=== PATIENT | female | born 1990 | race Caucasian/White ===

== ENCOUNTER 2016-09-17 02:11 | Emergency (ER) | payer OTHER ==
[~2016-09-17 02:11] MED LIST: ONDA1TAB16 PO; TRAM50 PO
[2016-09-17 02:15] VITALS: BP 125/75; PULSE 112; RESP 18; TEMP 98.2; O2SAT 96
[2016-09-17] MEDS ORDERED: SODIUM CHLOR 0.9% 1000 ML INJ 1,000 ML IV SCH (02:39)
[2016-09-17] MEDS ORDERED: ONDANSETRON HCL 4 MG/2 ML VIAL IVP ONE (02:45)
[2016-09-17] MEDS ORDERED: MORPHINE SULFATE 4 MG/ML INJ IV ONE (02:45)
[2016-09-17 02:47] VITALS: RESP 18; O2SAT 100
[2016-09-17] MEDS: SODIUM CHLORIDE 0.9% FLUSH 5 ML FLUSH IVF PRN ×2 (02:47→04:22)
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
[2016-09-17] MEDS ORDERED: IOHEXOL 350 MG/ML 10 ML VIAL (for RAD DIAG) IV ONE (02:58)
[2016-09-17 03:03] LABS: AUTOMATED NEUTROPHIL # 12.5 TH/MM3 (1.8-7.7); BASOPHIL # 0.1 TH/MM3 (0-0.2); BASOPHIL % 0.3 % (0.0-2.0); HEMATOCRIT 42.7 % (35.0-46.0); HEMO FLAGS DIFF FINAL; LYMPH % 13.1 % (9.0-44.0); MEAN CELL VOLUME 90.4 FL (80.0-100.0); MEAN CORPUSCULAR HEMOGLOBIN 31.1 PG (27.0-34.0); MEAN CORPUSCULAR HGB CONC 34.3 % (32.0-36.0); MONO % 5.3 % (0.0-8.0); NEUT % 81.3 % (16.0-70.0); PLATELET COUNT 265 TH/MM3 (150-450); RED BLOOD COUNT 4.73 MIL/MM3 (4.00-5.30); RED CELL DISTRIBUTION WIDTH 13.9 % (11.6-17.2); WHITE BLOOD COUNT 15.3 TH/MM3 (4.0-11.0)
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
[2016-09-17 03:20] LABS: BICARBONATE 25.7 MEQ/L (21.0-32.0); POTASSIUM 3.8 MEQ/L (3.5-5.1)
[2016-09-17 03:24] LABS: APTT (PATIENT) 27.3 SEC (24.3-30.1); INTERNATIONAL NORMALIZED RATIO 1.1 RATIO; PROTHROMBIN TIME - PATIENT 12.1 SEC (9.8-11.6)
--- NOTE | 2016-09-17 03:38 | RADRPT ---
EXAM DATE/TIME: 09/17/2016 03:24 [facility] COMPARISON: No previous studies available for comparison. INDICATIONS : Shortness of breath. MEDICAL HISTORY : None. SURGICAL HISTORY : None. ENCOUNTER: Initial ACUITY: 1 day PAIN SCORE: 0/10 LOCATION: Bilateral chest FINDINGS: A single view of the chest demonstrates the lungs to be symmetrically aerated without evidence of mas s, infiltrate or effusion. The cardiomediastinal contours are unremarkable. Osseous structures are intact. CONCLUSION: No acute disease. Donte De Jesus MD on September 17, 2016 at 3:36 Board Certified Radiologist. This report was verified electronically.
[2016-09-17] MEDS ORDERED: IBUP-232 PO (03:43)
[2016-09-17] MEDS ORDERED: ORPH100T99 PO (03:43)
[2016-09-17] MEDS ORDERED: KETOROLAC TROMETHAMINE 30 MG/ML (IVP) VIAL IV PUSH ONE (03:45)
== END 2016-09-17 05:29 | disposition home or self-care (01) ==
LOC: NEPE 02:11
DX: S09.90XA Unspecified injury of head, initial encounter (principal); S00.81XA Abrasion of other part of head, initial encounter; R51 Headache; R11.0 Nausea; F17.210 Nicotine dependence, cigarettes, uncomplicated; R00.0 Tachycardia, unspecified; Z87.442 Personal history of urinary calculi; Z88.0 Allergy status to penicillin; V53.5XXA Driver of pick-up truck or van injured in collision with car, pick-up truck or van in traffic accident, initial encounter; Y99.8 Other external cause status
CPT/HCPCS: 70450; 71010; 72125; 74177; 80048; 83690; 85025; 85610; 85730; 86850; 86900; 86901; 96374; 96375; 99284; J1885; J2270; J2405; J7030; Q9967

== ENCOUNTER 2016-09-18 22:32 | Emergency (ER) | payer OTHER ==
[~2016-09-18] VITALS: Ht 152.4 cm; Wt 66.0 kg
[~2016-09-18 22:32] MED LIST changes: +IBUP-232 PO; -ONDA1TAB16 PO; +ORPH100T99 PO; -TRAM50 PO
[2016-09-18 22:33] VITALS: BP 129/84; PULSE 94; RESP 18; TEMP 98; O2SAT 98
[2016-09-18] MEDS ORDERED: SODIUM CHLOR 0.9% 1000 ML INJ 1,000 ML IV SCH (23:03)
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
[2016-09-18] MEDS ORDERED: MORPHINE SULFATE 4 MG/ML INJ IV PUSH ONE (23:15)
[2016-09-18] MEDS ORDERED: ONDANSETRON HCL 4 MG/2 ML VIAL IVP ONE (23:15)
[2016-09-18] MEDS ORDERED: SODIUM CHLORIDE 0.9% FLUSH 5 ML FLUSH IVF PRN (23:15)
[2016-09-18] MEDS ORDERED: IOHEXOL 350 MG/ML 10 ML VIAL (for RAD DIAG) IV ONE (23:32)
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
[2016-09-18 23:49] LABS: AUTOMATED NEUTROPHIL # 12.1 TH/MM3 (1.8-7.7); BASOPHIL # 0.1 TH/MM3 (0-0.2); BASOPHIL % 0.4 % (0.0-2.0); EOSINOPHIL % 0.1 % (0.0-4.0); HEMATOCRIT 43.1 % (35.0-46.0); HEMO FLAGS DIFF FINAL; LYMPH % 13.5 % (9.0-44.0); MEAN CELL VOLUME 91.5 FL (80.0-100.0); MEAN CORPUSCULAR HEMOGLOBIN 31.1 PG (27.0-34.0); MONO % 4.3 % (0.0-8.0); NEUT % 81.7 % (16.0-70.0); PLATELET COUNT 258 TH/MM3 (150-450); RED CELL DISTRIBUTION WIDTH 13.8 % (11.6-17.2); WHITE BLOOD COUNT 14.8 TH/MM3 (4.0-11.0)
[2016-09-19 00:26] LABS: ALKALINE PHOSPHATASE 98 U/L (45-117); ALT (GPT) 24 U/L (10-53); ANION GAP 12 MEQ/L (5-15); AST (GOT) 22 U/L (15-37); BICARBONATE 23.6 MEQ/L (21.0-32.0); BLOOD UREA NITROGEN 6 MG/DL (7-18); CHLORIDE 101 MEQ/L (98-107); GLOMERULAR FILTRATION RATE 84 ML/MIN (>89); SODIUM (NA) 137 MEQ/L (136-145); TOTAL BILIRUBIN ADULT 0.6 MG/DL (0.2-1.0)
[2016-09-19] MEDS ORDERED: PROCHLORPERAZINE INJ 10 MG/2 ML VIAL IVS ONE (00:30)
[2016-09-19] MEDS ORDERED: SODIUM CHLOR 0.9% 1000 ML INJ 1,000 ML IV ONE (00:30)
[2016-09-19 00:49] LABS: POTASSIUM 3.5 MEQ/L (3.5-5.1)
[2016-09-19] MEDS ORDERED: PROM25TA5 PO (01:19)
[2016-09-19] MEDS ORDERED: ZOFR4TAB3 SL (01:19)
[2016-09-19] MEDS ORDERED: NORC5TAB PO (01:19)
== END 2016-09-19 02:20 | disposition home or self-care (01) ==
LOC: NEPE 22:32
DX: R11.2 Nausea with vomiting, unspecified (principal); R10.12 Left upper quadrant pain; F17.210 Nicotine dependence, cigarettes, uncomplicated; F12.20 Cannabis dependence, uncomplicated; F10.10 Alcohol abuse, uncomplicated
CPT/HCPCS: 74177; 80053; 83690; 85025; 96374; 96375; 99284; J0780; J2270; J2405; J7030; Q9967

== ENCOUNTER 2016-12-15 15:11 | Emergency (ER) | payer SELFPAY ==
[~2016-12-15] VITALS: Ht 152.4 cm; Wt 52.0 kg
[~2016-12-15 15:11] MED LIST changes: +NORC5TAB PO; +PROM25TA5 PO; +ZOFR4TAB3 SL
[2016-12-15 15:13] VITALS: BP 112/62; PULSE 112; RESP 16; TEMP 98.6; O2SAT 100
[2016-12-15] MEDS ORDERED: SODIUM CHLOR 0.9% 1000 ML INJ 1,000 ML IV SCH ×2 (15:34→17:54)
--- NOTE | 2016-12-15 15:36 | PD ---
HPI Chief Complaint: Flank/Kidney Pain Time Seen by Provider: 15:30 Travel History International Travel<30 days: No Contact w/Intl Traveler<30days: No Traveled to known affect area: No History of Present Illness HPI 26-year-old female with history of ureterolithiasis requiring ureteral stent here with complaint of left flank pain. She has had pain for the last 3 days in the left flank wrapping around in the left lower quadrant of the abdomen with small volume urinary frequency, nausea, vomiting. No fevers or chills. No dysuria or hematuria. States this feels similar to her ureterolithiasis in the past. PFSH Past Medical History Diminished Hearing: No Kidney Stones: Yes Immunizations Current: Yes Tetanus Vaccination: Unknown Influenza Vaccination: No ?: Not : 0 Past Surgical History Genitourinary Surgery: Yes (URETERAL STENT PLACEMENT X 2/REMOVED) Oral Surgery: Yes (WISDOM TEETH) Social History Alcohol Use: Yes ("BOTTLE ON WEEKENDS") Tobacco Use: Yes (1 PPD) Substance Use: Yes (MARIJUANA DAILY) Allergies-Medications (Allergen,Severity, Reaction): Coded Allergies: Amoxicillin (Verified Adverse Reaction, Severe, GETS SEVERE YEAST INFECTION, 12/15/16) THIS IS ALSO TRUE FOR PCN Penicillin (Verified Adverse Reaction, Intermediate, SEVERE YEAST INFECTION, 12/15/16) Reported Meds & Prescriptions Reported Meds & Active Scripts Active No Active Prescriptions or Reported Medications Review of Systems Except as stated in HPI: all other systems reviewed are Neg Physical Exam Narrative GENERAL: Well-appearing female in mild distress SKIN: Focused skin assessment warm/dry. HEAD: Normocephalic. EYES: No scleral icterus. No injection or drainage. ENT: Mucous membranes pink and moist. NECK: Supple CARDIOVASCULAR: Regular rate and rhythm. RESPIRATORY: No accessory muscle use. GASTROINTESTINAL: Abdomen soft, mild left-sided CVA and left lower quadrant tenderness palpation without rebound or guarding MUSCULOSKELETAL: No obvious deformities. No edema. NEUROLOGICAL: Awake and alert. Normal speech. PSYCHIATRIC: Appropriate mood and affect; insight and judgment normal. Data Data Last Documented VS Vital Signs Date Time Temp Pulse Resp B/P Pulse Ox O2 Delivery O2 Flow Rate FiO2 12/15/16 15:48 93 16 100/72 95 Room Air 12/15/16 15:13 98.6 Orders Urinalysis - C+S If Indicated (12/15/16 15:31) Iv Access Insert/Monitor (12/15/16 15:34) Oximetry (12/15/16 15:34) Morphine Inj (Morphine Inj) (12/15/16 15:45) Ondansetron Inj (Zofran Inj) (12/15/16 15:45) Sodium Chlor 0.9% 1000 Ml Inj (Ns 1000 M (12/15/16 15:34) Sodium Chloride 0.9% Flush (Ns Flush) (12/15/16 15:45) Ketorolac Inj (Toradol Inj) (12/15/16 15:45) MDM Medical Decision Making Medical Screen Exam Complete: Yes Emergency Medical Condition: Yes Medical Record Reviewed: Yes Differential Diagnosis 26-year-old female with history of ureterolithiasis requiring stent placement here with 3 days of left-sided flank pain radiating the left lower quadrant of the abdomen. Differential includes ureterolithiasis, UTI/pyelonephritis, diverticulitis, musculoskeletal. Overall benign abdominal examination making peritoneal pathology unlikely. Narrative Course Placed on monitor, IV established. Given 4 mg morphine, 4 mg Zofran, 30 mg Toradol, 1 L normal saline bolus. Urinalysis remains pending, signed out to oncoming provider waiting results of same for hopeful disposition home. Scripts No Active Prescriptions or Reported Meds Oma Ko MD December 15, 2016 15:36
[2016-12-15] MEDS ORDERED: ONDANSETRON HCL 4 MG/2 ML VIAL IVP ONE (15:45)
[2016-12-15] MEDS ORDERED: SODIUM CHLORIDE 0.9% FLUSH 10 ML FLUSH IV FLUSH PRN (15:45)
[2016-12-15] MEDS ORDERED: KETOROLAC TROMETHAMINE 30 MG/ML (IVP) VIAL IVP ONE (15:45)
[2016-12-15] MEDS ORDERED: MORPHINE SULFATE 4 MG/ML INJ IV PUSH ONE (15:45)
[2016-12-15 15:48] VITALS: BP 100/72; PULSE 93; RESP 16; O2SAT 95
[2016-12-15 17:33] LABS: BLOOD, URINE NEG (NEG); COMMENT (UR) CULT NOT INDICATED; CULTURE IF INDICATED CULT NOT INDICATED; GLUCOSE,URINE NEG (NEG); KETONE, URINE 10 mg/dL (NEG); MUCUS URINE FEW /lpf (OCC); NITRITE,URINE NEG (NEG); PH, URINE 8.5 (5.0-8.5); SQUAMOUS EPITHELIAL CELL URINE 2 /hpf (0-5); URINE COLOR YELLOW (YELLW/STRAW)
--- NOTE | 2016-12-15 17:59 | PD ---
Physical Exam Date Seen by Provider: December 15, 2016 Narrative Patient presents with chief complaint of left flank pain. Onset was a couple of days ago. She states that the pain is severe. It is sharp. It is associated with urinary symptoms. It feels like her previous kidney colic. Care was assumed from Dr. Ko at 5 PM pending her urine. Data Data Last Documented VS Vital Signs Date Time Temp Pulse Resp B/P Pulse Ox O2 Delivery O2 Flow Rate FiO2 12/15/16 18:11 86 20 100/57 99 Room Air 12/15/16 15:13 98.6 Orders Urinalysis - C+S If Indicated (12/15/16 15:31) Iv Access Insert/Monitor (12/15/16 15:34) Oximetry (12/15/16 15:34) Morphine Inj (Morphine Inj) (12/15/16 15:45) Ondansetron Inj (Zofran Inj) (12/15/16 15:45) Sodium Chlor 0.9% 1000 Ml Inj (Ns 1000 M (12/15/16 15:34) Sodium Chloride 0.9% Flush (Ns Flush) (12/15/16 15:45) Ketorolac Inj (Toradol Inj) (12/15/16 15:45) Ct Abd/Pel W/O Iv Contrast (12/15/16 17:54) Sodium Chlor 0.9% 1000 Ml Inj (Ns 1000 M (12/15/16 17:54) Hydromorphone Pf Inj (Dilaudid Pf Inj) (12/15/16 18:00) Labs Laboratory Tests Test 12/15/16 17:00 Urine Color YELLOW Urine Turbidity CLEAR Urine pH 8.5 Urine Specific Cosby 1.025 Urine Protein 30 mg/dL Urine Glucose (UA) NEG mg/dL Urine Ketones 10 mg/dL Urine Occult Blood NEG Urine Nitrite NEG Urine Bilirubin NEG Urine Urobilinogen 4.0 MG/DL Urine Leukocyte Esterase NEG Urine RBC LESS THAN 1 /hpf Urine WBC LESS THAN 1 /hpf Urine Squamous Epithelial 2 /hpf Cells Urine Mucus FEW /lpf Microscopic Urinalysis Comment CULT NOT INDICATED MDM Supervised Visit with [facility]: No Narrative Course Laboratory Tests Test 12/15/16 17:00 Urine Color YELLOW Urine Turbidity CLEAR Urine pH 8.5 Urine Specific Cosby 1.025 Urine Protein 30 mg/dL Urine Glucose (UA) NEG mg/dL Urine Ketones 10 mg/dL Urine Occult Blood NEG Urine Nitrite NEG Urine Bilirubin NEG Urine Urobilinogen 4.0 MG/DL Urine Leukocyte Esterase NEG Urine RBC LESS THAN 1 /hpf Urine WBC LESS THAN 1 /hpf Urine Squamous Epithelial 2 /hpf Cells Urine Mucus FEW /lpf Microscopic Urinalysis Comment CULT NOT INDICATED Urine is unremarkable and the patient reports that her pain is no better. Therefore, I have ordered a CT. I have also ordered a dose of Dilaudid. CT: 1. Several minute less than 1 mm left renal calculi with no inflammatory change or obstruction. 2. The uterus and adnexa appear unremarkable. Given the results of her UA and her CT, her pain is most likely musculoskeletal. Diagnosis Primary Impression: Left flank pain Patient Instructions: Flank Pain (ED), General Instructions Med/Other Pt SpecificInfo: Prescription(s) given Scripts Cyclobenzaprine (Flexeril)10 Mg Tab10 Mg PO TID #30 TAB Ref 0 Prov:Anu German MD 12/15/16 Ibuprofen 600 Mg [id number] Mg PO Q6H PRN (Pain/Inflammation) #20 TAB Ref 0 Prov:Anu German MD 12/15/16 Disposition: 01 DISCHARGE HOME Condition: Stable Anu German MD December 15, 2016 17:59
[2016-12-15] MEDS ORDERED: HYDROmorphone HCL PF 1 MG/ML VIAL IVS ONE (18:00)
[2016-12-15 18:11] VITALS: BP 100/57; PULSE 86; RESP 20; O2SAT 99
--- NOTE | 2016-12-15 18:54 | RADRPT ---
EXAM DATE/TIME: 12/15/2016 18:38 [facility] COMPARISON: CT ABDOMEN & PELVIS W/O CONTRAST, March 07, 2016, 11:04. INDICATIONS : Left flank and lower quadrant pain with nausea. ORAL CONTRAST: No oral contrast ingested. RADIATION DOSE: 5.01 CTDIvol (mGy) MEDICAL HISTORY : Renal calculi. SURGICAL HISTORY : Ureter stents placed and removed ENCOUNTER: Initial ACUITY: 1 day PAIN SCALE: 10/10 LOCATION: Left lower quadrant TECHNIQUE: Volumetric scanning of the abdomen and pelvis was performed. Using automated exposure control and ad justment of the mA and/or kV according to patient size, radiation dose was kept as low as reasonably achievable to obtain optimal diagnostic quality images. FINDINGS: LOWER LUNGS: The visualized lower lungs are clear except for apparent atelectasis in the dependent portions of the lung bases. LIVER: Homogeneous density without lesion. There is no dilation of the biliary tree. No calcified gallston es. SPLEEN: Normal size without lesion. PANCREAS: Within normal limits. KIDNEYS: Normal in size and shape. There is no mass or hydronephrosis. There is no inflammatory change. There are several minute less than 1 mm left renal calculi. ADRENAL GLANDS: Within normal limits. VASCULAR: There is no aortic aneurysm. BOWEL/MESENTERY: No oral contrast was given limiting the sensitivity of the exam. The stomach, small bowel, and colon demonstrate no acute abnormality. There is no free intraperitoneal air or fluid. ABDOMINAL WALL: Within normal limits. RETROPERITONEUM: There is no lymphadenopathy. BLADDER: No wall thickening or mass. REPRODUCTIVE: Within normal limits. INGUINAL: There is no lymphadenopathy or hernia. MUSCULOSKELETAL: Within normal limits for patient age. CONCLUSION: 1. Several minute less than 1 mm left renal calculi with no inflammatory change or obstruction. 2. The uterus and adnexa appear unremarkable. Doug Matias MD on December 15, 2016 at 18:50 Board Certified Radiologist. This report was verified electronically.
[2016-12-15] MEDS ORDERED: IBUP-232 PO (19:00)
[2016-12-15] MEDS ORDERED: CYCL1TAB29 PO (19:00)
== END 2016-12-15 20:01 | disposition home or self-care (01) ==
LOC: NEPD 15:11
DX: R10.9 Unspecified abdominal pain (principal); F17.210 Nicotine dependence, cigarettes, uncomplicated; F12.90 Cannabis use, unspecified, uncomplicated
CPT/HCPCS: 74176; 81001; 96361; 96374; 96375; 99285; J1170; J1885; J2270; J2405; J7030

== ENCOUNTER 2017-04-06 13:17 | Emergency (ER) | payer SELFPAY ==
[~2017-04-06] VITALS: Ht 152.4 cm; Wt 59.0 kg
[~2017-04-06 13:17] MED LIST changes: +CYCL1TAB29 PO; -NORC5TAB PO; -ORPH100T99 PO; -PROM25TA5 PO; -ZOFR4TAB3 SL
[2017-04-06 13:19] VITALS: BP 111/80; PULSE 88; RESP 16; TEMP 98.6; O2SAT 97
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
[2017-04-06] MEDS ORDERED: HYDR-3533 PO (15:40)
[2017-04-06] MEDS ORDERED: ACETAMINOPHEN 325 MG TAB PO ONE ×2 (15:45)
[2017-04-06] MEDS ORDERED: ACETAMINOPHEN/HYDROcodone 325 MG/5 MG TAB PO ONE (15:45)
== END 2017-04-06 16:37 | disposition home or self-care (01) ==
LOC: NETRI 13:17 → EDTENT 16:37
DX: S92.252A Displaced fracture of navicular [scaphoid] of left foot, initial encounter for closed fracture (principal); F17.200 Nicotine dependence, unspecified, uncomplicated; W22.8XXA Striking against or struck by other objects, initial encounter; Z88.0 Allergy status to penicillin; Z88.6 Allergy status to analgesic agent
CPT/HCPCS: 29515; 73610; 73630; 99283; E0113

== ENCOUNTER 2017-05-07 00:02 | Emergency (ER) | payer SELFPAY ==
[~2017-05-07] VITALS: Ht 152.4 cm; Wt 68.0 kg
[~2017-05-07 00:02] MED LIST changes: -CYCL1TAB29 PO; +HYDR-3533 PO; -IBUP-232 PO
[2017-05-07 00:05] VITALS: BP 139/94; PULSE 89; RESP 15; TEMP 98.2; O2SAT 97
[2017-05-07] MEDS ORDERED: ONDANSETRON HCL 4 MG/2 ML VIAL ONE (00:23)
[2017-05-07 00:24] VITALS: BP 122/62; PULSE 89; RESP 18; O2SAT 100
[2017-05-07] MEDS ORDERED: ONDANSETRON HCL 4 MG/2 ML VIAL IV PUSH ONE (00:45)
[2017-05-07] MEDS ORDERED: SODIUM CHLOR 0.9% 1000 ML INJ 1,000 ML IV ONE (00:45)
[2017-05-07] MEDS ORDERED: MORPHINE SULFATE 8 MG/ML INJ IV PUSH ONE (00:45)
[2017-05-07 01:08] LABS: AUTOMATED NEUTROPHIL # 3.3 TH/MM3 (1.8-7.7); BASOPHIL # 0.1 TH/MM3 (0-0.2); BASOPHIL % 0.8 % (0.0-2.0); EOSINOPHIL # 0.3 TH/MM3 (0-0.4); EOSINOPHIL % 3.3 % (0.0-4.0); HEMATOCRIT 38.9 % (35.0-46.0); HEMO FLAGS DIFF FINAL; LYMPH % 47.5 % (9.0-44.0); LYMPHOCYTE # 3.9 TH/MM3 (1.0-4.8); MEAN CELL VOLUME 94.9 FL (80.0-100.0); MEAN CORPUSCULAR HEMOGLOBIN 31.7 PG (27.0-34.0); MEAN CORPUSCULAR HGB CONC 33.4 % (32.0-36.0); NEUT % 40.4 % (16.0-70.0); PLATELET COUNT 264 TH/MM3 (150-450); RED BLOOD COUNT 4.09 MIL/MM3 (4.00-5.30); RED CELL DISTRIBUTION WIDTH 13.4 % (11.6-17.2); WHITE BLOOD COUNT 8.2 TH/MM3 (4.0-11.0)
--- NOTE | 2017-05-07 01:24 | RADRPT ---
EXAM DATE/TIME: 05/07/2017 00:55 [facility] COMPARISON: CT ABDOMEN & PELVIS W/O CONTRAST, March 23, 2015, 12:20. INDICATIONS : Left flank pain with nausea and vomiting. ORAL CONTRAST: No oral contrast ingested. RADIATION DOSE: 13.55 CTDIvol (mGy) MEDICAL HISTORY : Renal calculi. SURGICAL HISTORY : Urethral stents. ENCOUNTER: Initial ACUITY: 1 day PAIN SCALE: 9/10 LOCATION: Left flank TECHNIQUE: Volumetric scanning of the abdomen and pelvis was performed. Using automated exposure control and ad justment of the mA and/or kV according to patient size, radiation dose was kept as low as reasonably achievable to obtain optimal diagnostic quality images. DICOM format image data is available electro nically for review and comparison. FINDINGS: No acute findings in the liver, spleen, adrenals or pancreas. There is a 3 mm nonobstructing calculus mid pole left kidney and 2 tiny 1-2 mm calculi nonobstructing in the right kidney. No hydronephrosis . No free fluid. No bowel obstruction. No adenopathy. No acute bony abnormalities. CONCLUSION: 1. Small nonobstructing bilateral renal calculi. No acute findings. Kristopher Higuera MD on May 07, 2017 at 1:18 Board Certified Radiologist. This report was verified electronically.
[2017-05-07 01:29] LABS: ANION GAP 8 MEQ/L (5-15); AST (GOT) 16 U/L (15-37); BICARBONATE 23.8 MEQ/L (21.0-32.0); BLOOD UREA NITROGEN 9 MG/DL (7-18); CHLORIDE 113 MEQ/L (98-107); GLOMERULAR FILTRATION RATE 92 ML/MIN (>89); POTASSIUM 3.4 MEQ/L (3.5-5.1); SODIUM (NA) 145 MEQ/L (136-145)
[2017-05-07 01:32] LABS: ALKALINE PHOSPHATASE 101 U/L (45-117); ALT (GPT) 22 U/L (10-53); TOTAL BILIRUBIN ADULT 0.2 MG/DL (0.2-1.0)
[2017-05-07 02:15] LABS: BLOOD, URINE NEG (NEG); COMMENT (UR) CULT NOT INDICATED; CULTURE IF INDICATED CULT NOT INDICATED; GLUCOSE,URINE NEG (NEG); HYALINE CAST, URINE 1 /lpf (RARE); KETONE, URINE NEG (NEG); NITRITE,URINE NEG (NEG); PH, URINE 5.5 (5.0-8.5); URINE COLOR LIGHT-YELLOW (YELLW/STRAW)
[2017-05-07] MEDS ORDERED: MORPHINE SULFATE 4 MG/ML INJ IV PUSH ONE (03:15)
[2017-05-07] MEDS ORDERED: ZOFR4TAB3 SL (03:28)
--- NOTE | 2017-05-07 03:28 | PD ---
HPI Chief Complaint: Flank/Kidney Pain Time Seen by Provider: 00:38 Travel History International Travel<30 days: No Contact w/Intl Traveler<30days: No Traveled to known affect area: No History of Present Illness HPI 26yo F with PMH of kidney stones here with c/o left flank pain today. Associated with nausea and vomiting. States it feels like her kidney stones. Denies any fever, chest pain, sob, focal weakness or numbness. PFSH Past Medical History Hx Anticoagulant Therapy: No Cardiovascular Problems: No Chemotherapy: No Cerebrovascular Accident: No Diabetes: No Diminished Hearing: No Kidney Stones: Yes Respiratory: No Immunizations Current: Yes ?: Not LMP: CURRENTLY : 0 Past Surgical History Genitourinary Surgery: Yes (URETERAL STENT PLACEMENT X 2/REMOVED) Hysterectomy: No Oral Surgery: Yes (WISDOM TEETH) Social History Alcohol Use: Yes ("BOTTLE ON WEEKENDS") Tobacco Use: Yes (1 PPD) Substance Use: Yes (MARIJUANA DAILY) Allergies-Medications (Allergen,Severity, Reaction): Coded Allergies: amoxicillin (Unverified Adverse Reaction, Severe, GETS SEVERE YEAST INFECTION, 05/07/17) THIS IS ALSO TRUE FOR PCN ibuprofen (Verified Adverse Reaction, Severe, 05/07/17) "UNABLE TO TAKE DUE TO KIDNEY PROBLEMS" penicillin G (Unverified Adverse Reaction, Intermediate, SEVERE YEAST INFECTION, 05/07/17) Reported Meds & Prescriptions Reported Meds & Active Scripts Active Zofran Odt (Ondansetron Odt) 4 Mg Tab 4 Mg SL Q12HR PRN Review of Systems Except as stated in HPI: all other systems reviewed are Neg Physical Exam Narrative GENERAL: 26yo F in moderate distress. SKIN: Focused skin assessment warm/dry. HEAD: Atraumatic. Normocephalic. CARDIOVASCULAR: Regular rate and rhythm. No murmur appreciated. RESPIRATORY: No accessory muscle use. Clear to auscultation. Breath sounds equal bilaterally. GASTROINTESTINAL: Abdomen soft, +TTP left flank. No rebound tenderness or guarding. MUSCULOSKELETAL: No obvious deformities. No clubbing. No cyanosis. No edema. NEUROLOGICAL: Awake and alert. No obvious cranial nerve deficits. Motor grossly within normal limits. Normal speech. PSYCHIATRIC: Appropriate mood and affect; insight and judgment normal. Data Data Last Documented VS Vital Signs Date Time Temp Pulse Resp B/P (MAP) Pulse Ox O2 Delivery O2 Flow Rate FiO2 10/13/17 03:53 05/07/17 03:53 71 18 98 Room Air 05/07/17 00:05 98.2 Orders Orders Ondansetron Inj (Zofran Inj) (05/07/17 00:23) Complete Blood Count With Diff (05/07/17 00:42) Comprehensive Metabolic Panel (05/07/17 00:42) Urinalysis - C+S If Indicated (05/07/17 00:42) Ondansetron Inj (Zofran Inj) (05/07/17 00:45) Morphine Inj (Morphine Inj) (05/07/17 00:45) Sodium Chlor 0.9% 1000 Ml Inj (Ns 1000 M (05/07/17 00:45) Ed Urine Pregnancytest Poc (05/07/17 00:43) Ct Abd/Pel W/O Iv Contrast (05/07/17 ) Morphine Inj (Morphine Inj) (05/07/17 03:15) Labs Laboratory Tests Test 05/07/17 00:50 05/07/17 01:50 White Blood Count 8.2 TH/MM3 Red Blood Count 4.09 MIL/MM3 Hemoglobin 13.0 GM/DL Hematocrit 38.9 % Mean Corpuscular Volume 94.9 FL Mean Corpuscular Hemoglobin 31.7 PG Mean Corpuscular Hemoglobin Concent 33.4 % Red Cell Distribution Width 13.4 % Platelet Count 264 TH/MM3 Mean Platelet Volume 9.0 FL Neutrophils (%) (Auto) 40.4 % Lymphocytes (%) (Auto) 47.5 % Monocytes (%) (Auto) 8.0 % Eosinophils (%) (Auto) 3.3 % Basophils (%) (Auto) 0.8 % Neutrophils # (Auto) 3.3 TH/MM3 Lymphocytes # (Auto) 3.9 TH/MM3 Monocytes # (Auto) 0.7 TH/MM3 Eosinophils # (Auto) 0.3 TH/MM3 Basophils # (Auto) 0.1 TH/MM3 CBC Comment DIFF FINAL Differential Comment Blood Urea Nitrogen 9 MG/DL Creatinine 0.75 MG/DL Random Glucose 89 MG/DL Total Protein 7.1 GM/DL Albumin 3.2 GM/DL Calcium Level 8.3 MG/DL Alkaline Phosphatase 101 U/L Aspartate Amino Transf (AST/SGOT) 16 U/L Alanine Aminotransferase (ALT/SGPT) 22 U/L Total Bilirubin 0.2 MG/DL Sodium Level 145 MEQ/L Potassium Level 3.4 MEQ/L Chloride Level 113 MEQ/L Carbon Dioxide Level 23.8 MEQ/L Anion Gap 8 MEQ/L Estimat Glomerular Filtration Rate 92 ML/MIN Urine Color LIGHT-YELLOW Urine Turbidity CLEAR Urine pH 5.5 Urine Specific [place] 1.005 Urine Protein NEG mg/dL Urine Glucose (UA) NEG mg/dL Urine Ketones NEG mg/dL Urine Occult Blood NEG Urine Nitrite NEG Urine Bilirubin NEG Urine Urobilinogen LESS THAN 2.0 MG/DL Urine Leukocyte Esterase NEG Urine WBC LESS THAN 1 /hpf Urine Hyaline Casts 1 /lpf Microscopic Urinalysis Comment CULT NOT INDICATED MDM Medical Decision Making Medical Screen Exam Complete: Yes Emergency Medical Condition: Yes Interpretation(s) Laboratory Tests Test 05/07/17 00:50 05/07/17 01:50 White Blood Count 8.2 TH/MM3 (4.0-11.0) Red Blood Count 4.09 MIL/MM3 (4.00-5.30) Hemoglobin 13.0 GM/DL (11.6-15.3) Hematocrit 38.9 % (35.0-46.0) Mean Corpuscular Volume 94.9 FL (80.0-100.0) Mean Corpuscular Hemoglobin 31.7 PG (27.0-34.0) Mean Corpuscular Hemoglobin Concent 33.4 % (32.0-36.0) Red Cell Distribution Width 13.4 % (11.6-17.2) Platelet Count 264 TH/MM3 (150-450) Mean Platelet Volume 9.0 FL (7.0-11.0) Neutrophils (%) (Auto) 40.4 % (16.0-70.0) Lymphocytes (%) (Auto) 47.5 % (9.0-44.0) Monocytes (%) (Auto) 8.0 % (0.0-8.0) Eosinophils (%) (Auto) 3.3 % (0.0-4.0) Basophils (%) (Auto) 0.8 % (0.0-2.0) Neutrophils # (Auto) 3.3 TH/MM3 (1.8-7.7) Lymphocytes # (Auto) 3.9 TH/MM3 (1.0-4.8) Monocytes # (Auto) 0.7 TH/MM3 (0-0.9) Eosinophils # (Auto) 0.3 TH/MM3 (0-0.4) Basophils # (Auto) 0.1 TH/MM3 (0-0.2) CBC Comment DIFF FINAL Differential Comment Blood Urea Nitrogen 9 MG/DL (7-18) Creatinine 0.75 MG/DL (0.50-1.00) Random Glucose 89 MG/DL (74-106) Total Protein 7.1 GM/DL (6.4-8.2) Albumin 3.2 GM/DL (3.4-5.0) Calcium Level 8.3 MG/DL (8.5-10.1) Alkaline Phosphatase 101 U/L (45-117) Aspartate Amino Transf (AST/SGOT) 16 U/L (15-37) Alanine Aminotransferase (ALT/SGPT) 22 U/L (10-53) Total Bilirubin 0.2 MG/DL (0.2-1.0) Sodium Level 145 MEQ/L (136-145) Potassium Level 3.4 MEQ/L (3.5-5.1) Chloride Level 113 MEQ/L (98-107) Carbon Dioxide Level 23.8 MEQ/L (21.0-32.0) Anion Gap 8 MEQ/L (5-15) Estimat Glomerular Filtration Rate 92 ML/MIN (>89) Urine Color LIGHT-YELLOW (YELLW/STRAW) Urine Turbidity CLEAR (CLEAR) Urine pH 5.5 (5.0-8.5) Urine Specific [place] 1.005 (1.002-1.035) Urine Protein NEG mg/dL (NEG-TRACE) Urine Glucose (UA) NEG mg/dL (NEG) Urine Ketones NEG mg/dL (NEG) Urine Occult Blood NEG (NEG) Urine Nitrite NEG (NEG) Urine Bilirubin NEG (NEG) Urine Urobilinogen LESS THAN 2.0 MG/DL (LESS Urine Leukocyte Esterase NEG (NEG) Urine WBC LESS THAN 1 /hpf (0-5) Urine Hyaline Casts 1 /lpf (RARE) Microscopic Urinalysis Comment CULT NOT INDICATED Differential Diagnosis Nephrolithiasis vs. pyelonephritis vs. musculoskeletal pain Narrative Course 26yo F with left sided flank pain and vomiting. Urine negative. Labs reviewed, no leukocytosis. CMP unremarkable. UA showed no leukocyte. CT a/p showed small nonobstructing bilateral renal calculi. Pt given morphine, zofran and NS IVF. Pt reevaluated at bedside with improvement. Tolerating PO. Diagnosis Primary Impression: Nephrolithiasis Patient Instructions: General Instructions Departure Forms: Tests/Procedures Additional Instructions: Please follow up with your primary care physician. Return to the ED if symptoms worsen. Med/Other Pt SpecificInfo: Prescription(s) given Scripts Ondansetron Odt (Zofran Odt) 4 Mg Tab 4 MG SL Q12HR Y for Nausea/Vomiting, #6 TAB 0 Refills Prov: Yomaira Robledo DO 05/07/17 Disposition: 01 DISCHARGE HOME Condition: Stable Yomaira Robledo DO May 07, 2017 03:28
[2017-05-07 03:53] VITALS: BP 117/71; PULSE 71; RESP 18; O2SAT 98
== END 2017-05-07 03:53 | disposition home or self-care (01) ==
LOC: NEPE 00:02
DX: N20.0 Calculus of kidney (principal); F17.200 Nicotine dependence, unspecified, uncomplicated
CPT/HCPCS: 74176; 80053; 81001; 84703; 85025; 96361; 96374; 96375; 96376; 99285; J2270; J2405; J7030

== ENCOUNTER 2017-05-14 00:06 | Emergency (ER) | payer SELFPAY ==
[~2017-05-14] VITALS: Ht 152.4 cm; Wt 61.7 kg
[~2017-05-14 00:06] MED LIST changes: -HYDR-3533 PO; +ZOFR4TAB3 SL
[2017-05-14 00:11] VITALS: BP 116/75; PULSE 119; RESP 22; TEMP 98.3; O2SAT 98
[2017-05-14] MEDS ORDERED: SODIUM CHLOR 0.9% 1000 ML INJ 1,000 ML IV ONE (00:40)
[2017-05-14] MEDS ORDERED: KETOROLAC TROMETHAMINE 30 MG/ML (IVP) VIAL IV PUSH ONE (00:45)
[2017-05-14] MEDS ORDERED: MORPHINE SULFATE 4 MG/ML INJ IV PUSH ONE ×2 (00:45→02:15)
[2017-05-14] MEDS ORDERED: SODIUM CHLORIDE 0.9% FLUSH 10 ML FLUSH IVF PRN (00:45)
[2017-05-14] MEDS ORDERED: ONDANSETRON HCL 4 MG/2 ML VIAL IV PUSH ONE (00:45)
--- NOTE | 2017-05-14 00:46 | PD ---
HPI Chief Complaint: Flank/Kidney Pain Time Seen by Provider: 00:35 Travel History International Travel<30 days: No Contact w/Intl Traveler<30days: No Traveled to known affect area: No History of Present Illness HPI The patient is a 17-year-old female who complains at 11 AM of severe right flank pain radiating to the right UVJ. She has a history of kidney stones. She came in a week ago with left flank pain and the same symptoms and had no obstructing renal calculi. She had a tiny 1-2 mm calculi nonobstructing in the right kidney. There was no hydronephrosis. She denies any fever. The patient is a lesbian and states she cannot be , she is not sexually active with men. PFSH Past Medical History Hx Anticoagulant Therapy: No Cardiovascular Problems: No Chemotherapy: No Cerebrovascular Accident: No Diabetes: No Diminished Hearing: No Kidney Stones: Yes Respiratory: No Immunizations Current: Yes Tetanus Vaccination: Unknown Influenza Vaccination: No ?: Not LMP: 05/07/17 : 0 Past Surgical History Genitourinary Surgery: Yes (URETERAL STENT PLACEMENT X 2/REMOVED) Hysterectomy: No Oral Surgery: Yes (WISDOM TEETH) Social History Alcohol Use: Yes ("BOTTLE ON WEEKENDS") Tobacco Use: Yes (1 PPD) Substance Use: Yes (MARIJUANA DAILY) Allergies-Medications (Allergen,Severity, Reaction): Coded Allergies: amoxicillin (Unverified Adverse Reaction, Severe, GETS SEVERE YEAST INFECTION, 05/14/17) THIS IS ALSO TRUE FOR PCN ibuprofen (Verified Adverse Reaction, Severe, 05/14/17) "UNABLE TO TAKE DUE TO KIDNEY PROBLEMS" penicillin G (Unverified Adverse Reaction, Intermediate, SEVERE YEAST INFECTION, 05/14/17) Reported Meds & Prescriptions Reported Meds & Active Scripts Active Zofran Odt (Ondansetron Odt) 4 Mg Tab 4 Mg SL Q12HR PRN Review of Systems Except as stated in HPI: all other systems reviewed are Neg Physical Exam Narrative GENERAL: The patient is alert, very 3 in moderate apparent distress with her flank pain. Except for a pulse rate of 119, her vital signs are normal. SKIN: Focused skin assessment warm/dry. HEAD: Atraumatic. Normocephalic. EYES: Pupils equal and round. No scleral icterus. No injection or drainage. ENT: No nasal bleeding or discharge. Mucous membranes pink and moist. NECK: Trachea midline. No JVD. CARDIOVASCULAR: Regular rate and rhythm. No murmur appreciated. RESPIRATORY: No accessory muscle use. Clear to auscultation. Breath sounds equal bilaterally. GASTROINTESTINAL: Abdomen soft, with tenderness to direct palpation in the right flank and right UVJ area, nondistended. Hepatic and splenic margins not palpable. No guarding or rebound is present. MUSCULOSKELETAL: No obvious deformities. No clubbing. No cyanosis. No edema. NEUROLOGICAL: Awake and alert. No obvious cranial nerve deficits. Motor grossly within normal limits. Normal speech. PSYCHIATRIC: Appropriate mood and affect; insight and judgment normal. Data Data Last Documented VS Vital Signs Date Time Temp Pulse Resp B/P (MAP) Pulse Ox O2 Delivery O2 Flow Rate FiO2 05/14/17 01:50 16 05/14/17 01:10 97 117/91 (100) 98 Room Air 05/14/17 00:11 98.3 Orders Orders Urinalysis - C+S If Indicated (05/14/17 00:28) Ed Urine Pregnancytest Poc (05/14/17 00:28) Complete Blood Count With Diff (05/14/17 00:40) Basic Metabolic Panel (Bmp) (05/14/17 00:40) Ct Abd/Pel W/O Iv Contrast (05/14/17 00:40) Ecg Monitoring (05/14/17 00:40) Iv Access Insert/Monitor (05/14/17 00:40) Ketorolac Inj (Toradol Inj) (05/14/17 00:45) Morphine Inj (Morphine Inj) (05/14/17 00:45) Ondansetron Inj (Zofran Inj) (05/14/17 00:45) Sodium Chloride 0.9% Flush (Ns Flush) (05/14/17 00:45) Sodium Chlor 0.9% 1000 Ml Inj (Ns 1000 M (05/14/17 00:40) Drug Screen, Random Urine (05/14/17 00:46) Ondansetron Inj (Zofran Inj) (05/14/17 02:15) Labs Laboratory Tests Test 05/14/17 00:30 05/14/17 01:46 White Blood Count 10.3 TH/MM3 Red Blood Count 4.63 MIL/MM3 Hemoglobin 14.2 GM/DL Hematocrit 43.2 % Mean Corpuscular Volume 93.4 FL Mean Corpuscular Hemoglobin 30.6 PG Mean Corpuscular Hemoglobin Concent 32.8 % Red Cell Distribution Width 12.6 % Platelet Count 271 TH/MM3 Mean Platelet Volume 9.1 FL Neutrophils (%) (Auto) 62.4 % Lymphocytes (%) (Auto) 29.3 % Monocytes (%) (Auto) 6.3 % Eosinophils (%) (Auto) 0.9 % Basophils (%) (Auto) 1.1 % Neutrophils # (Auto) 6.5 TH/MM3 Lymphocytes # (Auto) 3.0 TH/MM3 Monocytes # (Auto) 0.6 TH/MM3 Eosinophils # (Auto) 0.1 TH/MM3 Basophils # (Auto) 0.1 TH/MM3 CBC Comment DIFF FINAL Differential Comment Blood Urea Nitrogen 8 MG/DL Creatinine 0.83 MG/DL Random Glucose 79 MG/DL Calcium Level 8.4 MG/DL Sodium Level 139 MEQ/L Potassium Level 3.3 MEQ/L Chloride Level 105 MEQ/L Carbon Dioxide Level 22.5 MEQ/L Anion Gap 12 MEQ/L Estimat Glomerular Filtration Rate 81 ML/MIN Urine Color YELLOW Urine Turbidity CLEAR Urine pH 7.0 Urine Specific [place] 1.012 Urine Protein NEG mg/dL Urine Glucose (UA) NEG mg/dL Urine Ketones 15 mg/dL Urine Occult Blood NEG Urine Nitrite NEG Urine Bilirubin NEG Urine Leukocyte Esterase NEG Urine RBC 0-3 /hpf Urine WBC 0-2 /hpf Urine Squamous Epithelial Cells 6-8 /hpf Urine Bacteria RARE /hpf Microscopic Urinalysis Comment CULT NOT INDICATED Urine Opiates Screen NEG Urine Barbiturates Screen NEG Urine Amphetamines Screen NEG Urine Benzodiazepines Screen NEG Urine Cocaine Screen NEG Urine Cannabinoids Screen [facility] Medical Decision Making Medical Screen Exam Complete: Yes Emergency Medical Condition: Yes Medical Record Reviewed: Yes Interpretation(s) The CT abdomen/pelvis without IV contrast shows punctate nonobstructing bilateral renal calculi. There is no acute inflammatory process in a normal appendix. The pelvis was within normal limits. The CBC is normal. The basic metabolic profile shows potassium of 3.3 with GFR of 81 and calcium 8.4 but is otherwise unremarkable. The urine is normal except for 15 ketones and culture is not indicated. The urine toxicology screen is positive for marijuana but negative for other substances tested. Differential Diagnosis Right ureteral stone, drug seeking behavior, urinary tract infection, torsion ovary, PID, endometriosis Narrative Course The patient has no evidence of hydronephrosis or any obstructive stone. I cannot say that the pain is due to her ureteral stone. She may have a torsion ovary. She did refuse a pelvic exam. I suggest she see a communications tower technician to rule out pelvic cause of this pain. It is now 0300 and the patient's pain is gone and her nausea is gone. Impression: Abdominal pain etiology undetermined Diagnosis Primary Impression: Abdominal pain of unknown etiology Additional Instructions: As we discussed, this may be pelvic pain, intestinal colic but I cannot show that this was a urinary stone causing the pain. Follow-up with gynecology, I know I was not allowed to do a pelvic exam here. Med/Other Pt SpecificInfo: Prescription(s) given Scripts Prochlorperazine Maleate (Prochlorperazine Maleate) 10 Mg Tab 10 MG PO Q6H Y for NAUSEA OR VOMITING, #21 TAB 0 Refills Prov: Cem Juan MD 05/14/17 Disposition: 01 DISCHARGE HOME Condition: Stable Cem Juan MD May 14, 2017 00:46
[2017-05-14 00:50] VITALS: BP 119/83; PULSE 97; RESP 18; O2SAT 98
[2017-05-14 00:58] LABS: AUTOMATED NEUTROPHIL # 6.5 TH/MM3 (1.8-7.7); BASOPHIL # 0.1 TH/MM3 (0-0.2); BASOPHIL % 1.1 % (0.0-2.0); EOSINOPHIL # 0.1 TH/MM3 (0-0.4); EOSINOPHIL % 0.9 % (0.0-4.0); HEMATOCRIT 43.2 % (35.0-46.0); HEMO FLAGS DIFF FINAL; LYMPH % 29.3 % (9.0-44.0); MEAN CELL VOLUME 93.4 FL (80.0-100.0); MEAN CORPUSCULAR HEMOGLOBIN 30.6 PG (27.0-34.0); MEAN CORPUSCULAR HGB CONC 32.8 % (32.0-36.0); MONO % 6.3 % (0.0-8.0); NEUT % 62.4 % (16.0-70.0); PLATELET COUNT 271 TH/MM3 (150-450); RED BLOOD COUNT 4.63 MIL/MM3 (4.00-5.30); RED CELL DISTRIBUTION WIDTH 12.6 % (11.6-17.2); WHITE BLOOD COUNT 10.3 TH/MM3 (4.0-11.0)
[2017-05-14 01:07] LABS: POTASSIUM 3.3 MEQ/L (3.5-5.1)
[2017-05-14 01:10] VITALS: BP 117/91; PULSE 97; RESP 16; O2SAT 98
[2017-05-14 01:10] LABS: BICARBONATE 22.5 MEQ/L (21.0-32.0)
--- NOTE | 2017-05-14 02:02 | RADRPT ---
EXAM DATE/TIME: 05/14/2017 01:18 [facility] COMPARISON: No previous studies available for comparison. INDICATIONS : Right flank pain. History of renal stones. ORAL CONTRAST: No oral contrast ingested. RADIATION DOSE: 8.04 CTDIvol (mGy) MEDICAL HISTORY : Renal calculi. SURGICAL HISTORY : None. ENCOUNTER: Initial ACUITY: 1 day PAIN SCALE: 9/10 LOCATION: Right flank TECHNIQUE: Volumetric scanning of the abdomen and pelvis was performed. Using automated exposure control and ad justment of the mA and/or kV according to patient size, radiation dose was kept as low as reasonably achievable to obtain optimal diagnostic quality images. DICOM format image data is available electro nically for review and comparison. FINDINGS: LOWER LUNGS: The visualized lower lungs are clear. LIVER: Homogeneous density without lesion. There is no dilation of the biliary tree. No calcified gallston es. SPLEEN: Normal size without lesion. PANCREAS: Within normal limits. KIDNEYS: Normal in size and shape. There is no mass or hydronephrosis. The there are 2 right-sided nonobstruc ting calculi measuring 2 mm. One nonobstructing calculus left kidney measures to 3 mm. ADRENAL GLANDS: Within normal limits. VASCULAR: There is no aortic aneurysm. BOWEL/MESENTERY: The stomach, small bowel, and colon demonstrate no acute abnormality. There is no free intraperitone al air or fluid. Appendix is normal. ABDOMINAL WALL: Within normal limits. RETROPERITONEUM: There is no lymphadenopathy. BLADDER: No wall thickening or mass. REPRODUCTIVE: Within normal limits. INGUINAL: There is no lymphadenopathy or hernia. MUSCULOSKELETAL: Within normal limits for patient age. CONCLUSION: 1. Punctate nonobstructing bilateral renal calculi. 2. No acute inflammatory process. Normal appendix. Alirio Quintanilla MD on May 14, 2017 at 1:58 Board Certified Radiologist. This report was verified electronically.
[2017-05-14] MEDS ORDERED: ONDANSETRON HCL 4 MG/2 ML VIAL IV ONE (02:15)
[2017-05-14 02:44] LABS: BLOOD, URINE NEG (NEG); GLUCOSE,URINE NEG (NEG); KETONE, URINE 15 mg/dL (NEG); NITRITE,URINE NEG (NEG)
[2017-05-14 02:47] LABS: URINE COLOR YELLOW (YELLW/STRAW)
[2017-05-14 02:48] LABS: BACTERIA, URINE RARE /hpf; RBC, URINE 0-3 /hpf (0-3); WBC, URINE 0-2 /hpf (0-5)
[2017-05-14 02:49] LABS: COMMENT (UR) CULT NOT INDICATED; CULTURE IF INDICATED CULT NOT INDICATED
[2017-05-14 03:00] VITALS: BP 120/82; PULSE 85; RESP 16; O2SAT 98
[2017-05-14] MEDS ORDERED: PROC10TA PO (03:10)
== END 2017-05-14 03:21 | disposition home or self-care (01) ==
LOC: PHED 00:06
DX: R10.9 Unspecified abdominal pain (principal); F17.210 Nicotine dependence, cigarettes, uncomplicated; F12.90 Cannabis use, unspecified, uncomplicated; Z87.442 Personal history of urinary calculi
CPT/HCPCS: 74176; 80048; 80307; 81001; 84703; 85025; 96361; 96374; 96375; 96376; 99285; J1885; J2270; J2405; J7030

== ENCOUNTER 2017-05-30 10:06 | Emergency (ER) | payer SELFPAY ==
[~2017-05-30] VITALS: Ht 154.9 cm; Wt 60.0 kg
[~2017-05-30 10:06] MED LIST changes: +PROC10TA PO
[2017-05-30 10:08] VITALS: PULSE 109; RESP 19; TEMP 98.7; O2SAT 98
[2017-05-30 10:18] VITALS: BP 100/66
[2017-05-30] MEDS ORDERED: ONDANSETRON HCL 4 MG/2 ML VIAL ONE (10:24)
[2017-05-30] MEDS ORDERED: ONDANSETRON HCL 4 MG/2 ML VIAL IVP ONE (11:00)
[2017-05-30] MEDS ORDERED: MORPHINE SULFATE 4 MG/ML INJ IV PUSH ONE (11:00)
[2017-05-30] MEDS ORDERED: SODIUM CHLORIDE 0.9% FLUSH 10 ML FLUSH IV FLUSH PRN (11:00)
[2017-05-30] MEDS ORDERED: PROMETHAZINE INJ 25 MG/ML VIAL IM ONE (11:00)
--- NOTE | 2017-05-30 11:03 | PD ---
HPI Chief Complaint: Flank/Kidney Pain Time Seen by Provider: 10:19 Travel History International Travel<30 days: No Contact w/Intl Traveler<30days: No Traveled to known affect area: No History of Present Illness HPI The patient was seen and examined in the presence of the nurse. This patient complains of nausea and vomiting. She also has some right flank pain. Patient is a frequent visitor for the same symptoms. She's had extensive workups last month which didn't reveal any abnormality other than tiny 1 mm nonobstructive stones. She has a daily marijuana smoker. Symptoms severity is moderate. No alleviating factors. Duration one day. However this is a chronic intermittent problem. Patient doesn't follow up with any physician outside of here. Symptoms possibly exacerbated by marijuana use. She denies drug use or withdrawal possibility. PFSH Past Medical History Hx Anticoagulant Therapy: No Cardiovascular Problems: No Chemotherapy: No Cerebrovascular Accident: No Diabetes: No Diminished Hearing: No Kidney Stones: Yes Respiratory: No Immunizations Current: Yes Influenza Vaccination: No ?: Not : 0 Past Surgical History Genitourinary Surgery: Yes (URETERAL STENT PLACEMENT X 2/REMOVED) Hysterectomy: No Oral Surgery: Yes (WISDOM TEETH) Social History Alcohol Use: Yes ("BOTTLE ON WEEKENDS") Tobacco Use: Yes (1 PPD) Substance Use: Yes (MARIJUANA DAILY) Allergies-Medications (Allergen,Severity, Reaction): Coded Allergies: amoxicillin (Unverified Adverse Reaction, Severe, GETS SEVERE YEAST INFECTION, 05/30/17) THIS IS ALSO TRUE FOR PCN ibuprofen (Verified Adverse Reaction, Severe, 05/30/17) "UNABLE TO TAKE DUE TO KIDNEY PROBLEMS" penicillin G (Unverified Adverse Reaction, Intermediate, SEVERE YEAST INFECTION, 05/30/17) Reported Meds & Prescriptions Reported Meds & Active Scripts Active Phenergan (Promethazine HCl) 25 Mg Tablet 25 Mg PO Q6H PRN Review of Systems General / Constitutional: No: Fever Eyes: No: Visual changes HENT: No: Headaches Cardiovascular: No: Chest Pain or Discomfort Respiratory: No: Shortness of Breath Gastrointestinal: Positive: Nausea, Vomiting, Abdominal Pain Genitourinary: Positive: Flank Pain, No: Dysuria Musculoskeletal: No: Pain Skin: No Rash Neurologic: No: Weakness Psychiatric: No: Depression Endocrine: No: Polydipsia Hematologic/Lymphatic: No: Easy Bruising Physical Exam Narrative GENERAL: Well-nourished, well-developed patient with nausea and vomiting . SKIN: Focused skin assessment reveals no rash and nodules. Skin is Warm and dry. HEAD: Atraumatic. Normocephalic. EYES: Pupils equal and round. No scleral icterus. No injection or drainage. ENT: No nasal bleeding or discharge. Mucous membranes pink and moist. NECK: Trachea midline. No JVD. CARDIOVASCULAR: Regular rate and rhythm. No murmur appreciated. RESPIRATORY: No accessory muscle use. Clear to auscultation. Breath sounds equal bilaterally. GASTROINTESTINAL: Abdomen soft, non-tender, nondistended. Hepatic and splenic margins not palpable. MUSCULOSKELETAL: No obvious deformities. No clubbing. No cyanosis. No edema. NEUROLOGICAL: Awake and alert. No obvious cranial nerve deficits. Motor grossly within normal limits. Normal speech. PSYCHIATRIC: Appropriate mood and affect; insight and judgment normal. Data Data Last Documented VS Vital Signs Date Time Temp Pulse Resp B/P (MAP) Pulse Ox O2 Delivery O2 Flow Rate FiO2 05/30/17 11:15 84 17 116/80 (92) 97 Room Air 05/30/17 10:08 98.7 Orders Orders Ondansetron Inj (Zofran Inj) (05/30/17 10:24) Beta Hcg (Quant/Titer) (05/30/17 10:48) Complete Blood Count With Diff (05/30/17 10:48) Comprehensive Metabolic Panel (05/30/17 10:48) Lipase (05/30/17 10:48) Iv Access Insert/Monitor (05/30/17 10:48) NPO (05/30/17 10:48) Ondansetron Inj (Zofran Inj) (05/30/17 11:00) Sodium Chloride 0.9% Flush (Ns Flush) (05/30/17 11:00) Promethazine Inj (Phenergan Inj) (05/30/17 11:00) Morphine Inj (Morphine Inj) (05/30/17 11:15) Morphine Inj (Morphine Inj) (05/30/17 11:15) Labs Laboratory Tests Test 05/30/17 11:00 White Blood Count 8.7 TH/MM3 Red Blood Count 4.71 MIL/MM3 Hemoglobin 14.1 GM/DL Hematocrit 43.2 % Mean Corpuscular Volume 91.8 FL Mean Corpuscular Hemoglobin 29.9 PG Mean Corpuscular Hemoglobin Concent 32.6 % Red Cell Distribution Width 12.8 % Platelet Count 326 TH/MM3 Mean Platelet Volume 9.1 FL Neutrophils (%) (Auto) 67.9 % Lymphocytes (%) (Auto) 24.3 % Monocytes (%) (Auto) 5.3 % Eosinophils (%) (Auto) 1.6 % Basophils (%) (Auto) 0.9 % Neutrophils # (Auto) 5.9 TH/MM3 Lymphocytes # (Auto) 2.1 TH/MM3 Monocytes # (Auto) 0.5 TH/MM3 Eosinophils # (Auto) 0.1 TH/MM3 Basophils # (Auto) 0.1 TH/MM3 CBC Comment DIFF FINAL Differential Comment Blood Urea Nitrogen 8 MG/DL Creatinine 0.79 MG/DL Random Glucose 89 MG/DL Total Protein 8.2 GM/DL Albumin 3.5 GM/DL Calcium Level 8.3 MG/DL Alkaline Phosphatase 89 U/L Aspartate Amino Transf (AST/SGOT) 22 U/L Alanine Aminotransferase (ALT/SGPT) 27 U/L Total Bilirubin 0.4 MG/DL Sodium Level 139 MEQ/L Potassium Level 3.8 MEQ/L Chloride Level 106 MEQ/L Carbon Dioxide Level 22.2 MEQ/L Anion Gap 11 MEQ/L Estimat Glomerular Filtration Rate 86 ML/MIN Lipase 381 U/L Human Chorionic Gonadotropin, Quant LESS THAN 1 MIU/ML MDM Medical Decision Making Medical Screen Exam Complete: Yes Emergency Medical Condition: Yes Medical Record Reviewed: Yes Differential Diagnosis Gastroenteritis, cyclical vomiting syndrome, ileus Narrative Course I have reviewed the patient's electronic medical record. Reviewed her 2 CAT scans from last month, both negative IV placed I gave her IV Zofran and IV morphine and IM Phenergan and 1 L normal saline IV bolus CBC is normal metabolic profile is normal LFT's are normal lipase is normal On recheck the patient is clinically much improved. No vomiting while here Stable for outpatient follow-up I prescribed some Phenergan to use as needed Diagnosis Primary Impression: Nausea & vomiting Qualified Codes: G43.A0 - Cyclical vomiting, not intractable Additional Impression: Marijuana abuse, continuous Additional Instructions: The patient was advised to follow up with their physician and return if they worsen. I have recommended clear liquids for 24 hours, then gradually advance as tolerated. The patient was warned about potential sedation for the medications they will receive on prescription. Stop marijuana use Med/Other Pt SpecificInfo: Prescription(s) given Scripts Promethazine (Phenergan) 25 Mg Tablet 25 MG PO Q6H Y for NAUSEA OR VOMITING, #15 TAB 0 Refills Prov: Jermain Mehta MD 05/30/17 Disposition: 01 DISCHARGE HOME Condition: Stable Jermain Mehta MD May 30, 2017 11:03
[2017-05-30 11:12] LABS: AUTOMATED NEUTROPHIL # 5.9 TH/MM3 (1.8-7.7); BASOPHIL # 0.1 TH/MM3 (0-0.2); BASOPHIL % 0.9 % (0.0-2.0); EOSINOPHIL # 0.1 TH/MM3 (0-0.4); EOSINOPHIL % 1.6 % (0.0-4.0); HEMATOCRIT 43.2 % (35.0-46.0); HEMO FLAGS DIFF FINAL; LYMPH % 24.3 % (9.0-44.0); LYMPHOCYTE # 2.1 TH/MM3 (1.0-4.8); MEAN CELL VOLUME 91.8 FL (80.0-100.0); MEAN CORPUSCULAR HEMOGLOBIN 29.9 PG (27.0-34.0); MEAN CORPUSCULAR HGB CONC 32.6 % (32.0-36.0); MONO % 5.3 % (0.0-8.0); NEUT % 67.9 % (16.0-70.0); PLATELET COUNT 326 TH/MM3 (150-450); RED BLOOD COUNT 4.71 MIL/MM3 (4.00-5.30); RED CELL DISTRIBUTION WIDTH 12.8 % (11.6-17.2); WHITE BLOOD COUNT 8.7 TH/MM3 (4.0-11.0)
[2017-05-30 11:15] VITALS: BP 116/80; PULSE 84; RESP 17; O2SAT 97
[2017-05-30] MEDS ORDERED: MORPHINE SULFATE 2 MG/ML INJ IV PUSH ONE (11:15)
[2017-05-30] MEDS ORDERED: MORPHINE SULFATE 2 MG/ML INJ IV ONE (11:15)
[2017-05-30 11:20] LABS: CHLORIDE 106 MEQ/L (98-107); POTASSIUM 3.8 MEQ/L (3.5-5.1); SODIUM (NA) 139 MEQ/L (136-145)
[2017-05-30 11:24] LABS: ANION GAP 11 MEQ/L (5-15); BICARBONATE 22.2 MEQ/L (21.0-32.0); BLOOD UREA NITROGEN 8 MG/DL (7-18)
[2017-05-30 11:27] LABS: ALT (GPT) 27 U/L (10-53); AST (GOT) 22 U/L (15-37)
[2017-05-30 11:28] LABS: GLOMERULAR FILTRATION RATE 86 ML/MIN (>89); TOTAL BILIRUBIN ADULT 0.4 MG/DL (0.2-1.0)
[2017-05-30 11:30] LABS: ALKALINE PHOSPHATASE 89 U/L (45-117)
[2017-05-30 11:32] LABS: BETA HCG QUANT LESS THAN 1 MIU/ML (0-5)
[2017-05-30] MEDS ORDERED: PROM25TA10 PO (11:53)
[2017-05-30 12:28] VITALS: BP 105/69; TEMP 98.1
== END 2017-05-30 12:30 | disposition home or self-care (01) ==
LOC: PHED 10:06
DX: G43.A0 Cyclical vomiting, in migraine, not intractable (principal); F12.10 Cannabis abuse, uncomplicated; R10.9 Unspecified abdominal pain; F17.200 Nicotine dependence, unspecified, uncomplicated; Z87.442 Personal history of urinary calculi
CPT/HCPCS: 80053; 83690; 84702; 85025; 96372; 96374; 96375; 99284; J2270; J2405; J2550

== ENCOUNTER 2017-06-30 15:20 | Emergency (ER) | payer SELFPAY ==
[~2017-06-30] VITALS: Ht 152.4 cm; Wt 63.4 kg
[~2017-06-30 15:20] MED LIST changes: -PROC10TA PO; +PROM25TA10 PO; -ZOFR4TAB3 SL
[2017-06-30 15:33] VITALS: BP 109/79; PULSE 94; RESP 16; TEMP 98.5; O2SAT 99
[2017-06-30] MEDS ORDERED: ACETAMINOPHEN/HYDROcodone 325 MG/5 MG TAB PO ONE (16:00)
[2017-06-30] MEDS ORDERED: MAGICPED SWISH-SPIT (16:02)
[2017-06-30] MEDS ORDERED: CLIN300C5 PO (16:02)
--- NOTE | 2017-06-30 16:08 | PD ---
HPI Chief Complaint: Oral / Dental Pain or Problem Time Seen by Provider: 15:52 Travel History International Travel<30 days: No Contact w/Intl Traveler<30days: No Traveled to known affect area: No History of Present Illness HPI 27-year-old female presents to emergency for right molar pain that is worsened over the last 2 weeks. Patient states that she cracked a tooth 6 months ago and has been unable to see a dentist. States it is the worst pain of her life. Patient denies radiation of pain. States she does have unusual taste in her mouth. Patient has not seen a dentist yet however, her girlfriend is working on an appointment. She denies fever, chills, but patient states that she felt feverish today. Denies neck pain. PFSH Past Medical History Medical History: Denies Significant Hx Hx Anticoagulant Therapy: No Cardiovascular Problems: No Chemotherapy: No Cerebrovascular Accident: No Diabetes: No Diminished Hearing: No Kidney Stones: Yes Respiratory: No Immunizations Current: Yes Tetanus Vaccination: < 5 Years Influenza Vaccination: No ?: Unknown : 0 Past Surgical History Genitourinary Surgery: Yes (URETERAL STENT PLACEMENT X 2/REMOVED) Hysterectomy: No Oral Surgery: Yes (WISDOM TEETH) Social History Alcohol Use: Yes ("BOTTLE ON WEEKENDS") Tobacco Use: Yes (1 PPD) Substance Use: Yes (MARIJUANA DAILY) Allergies-Medications (Allergen,Severity, Reaction): Coded Allergies: amoxicillin (Unverified Adverse Reaction, Severe, GETS SEVERE YEAST INFECTION, 06/30/17) THIS IS ALSO TRUE FOR PCN ibuprofen (Verified Adverse Reaction, Severe, 06/30/17) "UNABLE TO TAKE DUE TO KIDNEY PROBLEMS" penicillin G (Unverified Adverse Reaction, Intermediate, SEVERE YEAST INFECTION, 06/30/17) Reported Meds & Prescriptions Reported Meds & Active Scripts Active Magic Mouthwash Pediatric/Adult Liq (Lidocaine/Diphenhydr/Alum/Mg/Simeth) 60 Ml Susp 5 Ml SWISH-SPIT ACHS 10 Days Each 5mL contains: Diphenydramine 4.5mg, Viscous Lidocaine 2% 10mg, Maalox Advanced Regular Strength 2.7ml Clindamycin (Clindamycin HCl) 300 Mg Cap 300 Mg PO TID 7 Days Phenergan (Promethazine HCl) 25 Mg Tablet 25 Mg PO Q6H PRN Physical Exam Narrative GENERAL: Well-developed well-nourished resting comfortably in bed SKIN: Focused skin assessment warm/dry. HEAD: Atraumatic. Normocephalic. EYES: Pupils equal and round. No scleral icterus. No injection or drainage. ENT: No nasal bleeding or discharge. Mucous membranes pink and moist. No meningismus Poor dentition, no areas of fluctuance along the gumline. Right upper. Molar area tenderness to palpation without exudate NECK: Trachea midline. No JVD. No lymphadenopathy CARDIOVASCULAR: Regular rate and rhythm. No murmur appreciated. RESPIRATORY: No accessory muscle use. Clear to auscultation. Breath sounds equal bilaterally. MUSCULOSKELETAL: No obvious deformities. No clubbing. No cyanosis. No edema. NEUROLOGICAL: Awake and alert. No obvious cranial nerve deficits. Motor grossly within normal limits. Normal speech. PSYCHIATRIC: Appropriate mood and affect; insight and judgment normal. Data Data Last Documented VS Vital Signs Date Time Temp Pulse Resp B/P (MAP) Pulse Ox O2 Delivery O2 Flow Rate FiO2 06/30/17 15:33 98.5 94 16 109/79 (89) 99 Orders Orders Acetamin-Hydrocod 325-5 Mg ([place] 5-325 (06/30/17 16:00) Ed Discharge Order (06/30/17 16:14) [facility] Medical Decision Making Medical Screen Exam Complete: Yes Emergency Medical Condition: Yes Differential Diagnosis Right lower Tooth abscess versus infection versus fracture Narrative Course 27-year-old female presents to emergency for right upper and lower molar pain that is worsened over the last 2 weeks. Patient states that she cracked a tooth 6 months ago and has been unable to see a dentist. States it is the worst pain of her life. Patient denies radiation of pain. States she does have unusual taste in her mouth. Patient has not seen a dentist yet however, her girlfriend is working on an appointment. She denies fever, chills, but patient states that she felt feverish today. Denies neck pain. Vital signs stable Physical exam - No areas of fluctuance in the gumline. Poor dentition. TTP over gingiva in the premolar region. Administered hydrocodone in the emergency department for pain. Magic mouthwash and clindamycin for dental infection. Tylenol by mouth for pain. Advised follow-up with dentist within 2-3 days. Diagnosis Primary Impression: Dental infection Referrals: Dentist Additional Instructions: Take all medication as prescribed. Take Tylenol for pain relief. Use mouthwash as prescribed. Follow-up with a dentist as soon as possible. Scripts Raqwewlkqpzdxah-Odcbecsrb-Cdf-Alum-Simeth Liq (Magic Mouthwash Pediatric/Adult Liq) 60 Ml Susp 5 ML SWISH-SPIT ACHS for Pain Management for 10 Days, #60 ML 0 Refills Each 5mL contains: Diphenydramine 4.5mg, Viscous Lidocaine 2% 10mg, Maalox Advanced Regular Strength 2.7ml Prov: Brandon Haywood MD 06/30/17 Clindamycin (Clindamycin) 300 Mg Cap 300 MG PO TID for Infection for 7 Days, CAP 0 Refills Prov: Brandon Haywood MD 06/30/17 Disposition: 01 DISCHARGE HOME Condition: Stable Berna Leon Jun 30, 2017 16:08
== END 2017-06-30 16:30 | disposition home or self-care (01) ==
LOC: PHEFT 15:20
DX: K04.7 Periapical abscess without sinus (principal); Z72.0 Tobacco use
CPT/HCPCS: 99284

== ENCOUNTER 2017-09-03 07:55 | Emergency (ER) | payer SELFPAY ==
[~2017-09-03] VITALS: Ht 152.4 cm; Wt 63.2 kg
[~2017-09-03 07:55] MED LIST changes: +CLIN300C5 PO; +MAGICPED SWISH-SPIT
[2017-09-03 08:00] VITALS: BP 119/80; PULSE 97; RESP 16; TEMP 97.8; O2SAT 98
[2017-09-03] MEDS ORDERED: SODIUM CHLOR 0.9% 1000 ML INJ 1,000 ML IV SCH (08:05)
[2017-09-03] MEDS ORDERED: KETOROLAC TROMETHAMINE 30 MG/ML (IVP) VIAL IVP ONE (08:15)
[2017-09-03] MEDS ORDERED: SODIUM CHLORIDE 0.9% FLUSH 10 ML FLUSH IV FLUSH PRN (08:15)
[2017-09-03] MEDS ORDERED: ONDANSETRON HCL 4 MG/2 ML VIAL IVP ONE (08:15)
[2017-09-03] MEDS ORDERED: ONDANSETRON HCL 4 MG/2 ML VIAL IV PUSH ONE (08:15)
[2017-09-03 08:23] VITALS: O2SAT 98
[2017-09-03 08:25] LABS: AUTOMATED NEUTROPHIL # 5.1 TH/MM3 (1.8-7.7); BASOPHIL # 0.3 TH/MM3 (0-0.2); BASOPHIL % 3.3 % (0.0-2.0); EOSINOPHIL # 0.1 TH/MM3 (0-0.4); EOSINOPHIL % 1.6 % (0.0-4.0); HEMATOCRIT 44.3 % (35.0-46.0); HEMOGLOBIN 14.7 GM/DL (11.6-15.3); LYMPH % 22.2 % (9.0-44.0); LYMPHOCYTE # 1.7 TH/MM3 (1.0-4.8); MEAN CELL VOLUME 92.4 FL (80.0-100.0); MEAN CORPUSCULAR HEMOGLOBIN 30.6 PG (27.0-34.0); MEAN CORPUSCULAR HGB CONC 33.1 % (32.0-36.0); MEAN PLATELET VOLUME 9.2 FL (7.0-11.0); MONO % 5.5 % (0.0-8.0); MONOCYTE # 0.4 TH/MM3 (0-0.9); NEUT % 67.4 % (16.0-70.0); PLATELET COUNT 322 TH/MM3 (150-450); RED BLOOD COUNT 4.79 MIL/MM3 (4.00-5.30); RED CELL DISTRIBUTION WIDTH 12.3 % (11.6-17.2); WHITE BLOOD COUNT 7.6 TH/MM3 (4.0-11.0)
--- NOTE | 2017-09-03 08:35 | PD ---
HPI Chief Complaint: Flank/Kidney Pain Time Seen by Provider: 08:05 Travel History International Travel<30 days: No Contact w/Intl Traveler<30days: No Traveled to known affect area: No History of Present Illness HPI Patient is a 27-year-old female with a history of kidney stones requiring stenting in the past but has no stents present currently presents emergency department for evaluation of flank pain. Patient states that it started suddenly in the middle of night accompanied with some nausea nonbilious nonbloody emesis. States symptoms are severe, waxing and waning, associated sinus symptoms in context as above no vaginal bleeding or vaginal discharge. PFSH Past Medical History Hx Anticoagulant Therapy: No Cardiovascular Problems: No Chemotherapy: No Cerebrovascular Accident: No Diabetes: No Diminished Hearing: No Kidney Stones: Yes Respiratory: No Immunizations Current: Yes ?: Not LMP: 08/31/17 : 0 Past Surgical History Genitourinary Surgery: Yes (URETERAL STENT PLACEMENT X 2/REMOVED) Hysterectomy: No Oral Surgery: Yes (WISDOM TEETH) Social History Alcohol Use: Yes ("BOTTLE ON WEEKENDS") Tobacco Use: Yes (1 PPD) Substance Use: Yes (MARIJUANA DAILY) Allergies-Medications (Allergen,Severity, Reaction): Coded Allergies: amoxicillin (Unverified Adverse Reaction, Severe, GETS SEVERE YEAST INFECTION, 09/03/17) THIS IS ALSO TRUE FOR PCN ibuprofen (Verified Adverse Reaction, Severe, 09/03/17) "UNABLE TO TAKE DUE TO KIDNEY PROBLEMS" penicillin G (Unverified Adverse Reaction, Intermediate, SEVERE YEAST INFECTION, 09/03/17) Reported Meds & Prescriptions Reported Meds & Active Scripts Active Zofran (Ondansetron HCl) 4 Mg Tab 4 Mg PO Q6HR PRN [place] (Hydrocodone-Acetaminophen) 5 Mg-325 Mg Tab 1 Tab PO Q6H PRN Flomax (Tamsulosin HCl) 0.4 Mg Cap 0.4 Mg PO HS Review of Systems Except as stated in HPI: all other systems reviewed are Neg Physical Exam Narrative GENERAL: Well-developed well-nourished, appears uncomfortable. SKIN: Focused skin assessment warm/dry. HEAD: Atraumatic. Normocephalic. EYES: Pupils equal and round. No scleral icterus. No injection or drainage. ENT: No nasal bleeding or discharge. Mucous membranes pink and moist. NECK: Trachea midline. No JVD. CARDIOVASCULAR: Regular rate and rhythm. No murmur appreciated. RESPIRATORY: No accessory muscle use. Clear to auscultation. Breath sounds equal bilaterally. GASTROINTESTINAL: Abdomen soft, non-tender, nondistended. Hepatic and splenic margins not palpable. No CVA tenderness, no rebound or percussive tenderness, psoas and obturator signs negative. Rovsing sign negative, Moon sign negative MUSCULOSKELETAL: No obvious deformities. No clubbing. No cyanosis. No edema. NEUROLOGICAL: Awake and alert. No obvious cranial nerve deficits. Motor grossly within normal limits. Normal speech. PSYCHIATRIC: Appropriate mood and affect; insight and judgment normal. Data Data Last Documented VS Vital Signs Date Time Temp Pulse Resp B/P (MAP) Pulse Ox O2 Delivery O2 Flow Rate FiO2 09/03/17 11:40 73 16 102/65 (77) 97 09/03/17 10:45 Room Air 09/03/17 08:00 97.8 Orders Orders Urinalysis - C+S If Indicated (09/03/17 07:58) Ed Urine Pregnancytest Poc (09/03/17 07:58) Complete Blood Count With Diff (09/03/17 08:05) Comprehensive Metabolic Panel (09/03/17 08:05) Lipase (09/03/17 08:05) Iv Access Insert/Monitor (09/03/17 08:05) Ecg Monitoring (09/03/17 08:05) Oximetry (09/03/17 08:05) Ondansetron Inj (Zofran Inj) (09/03/17 08:15) Sodium Chlor 0.9% 1000 Ml Inj (Ns 1000 M (09/03/17 08:05) Sodium Chloride 0.9% Flush (Ns Flush) (09/03/17 08:15) Ketorolac Inj (Toradol Inj) (09/03/17 08:15) Ondansetron Inj (Zofran Inj) (09/03/17 08:15) Ed Poc Ultrasound (09/03/17 ) Promethazine (Phenergan) (09/03/17 10:15) Acetamin-Hydrocod 325-5 Mg ([place] 5-325 (09/03/17 10:15) Ct Abd/Pel W/O Iv Contrast (09/03/17 ) Ed Discharge Order (09/03/17 11:24) Labs Laboratory Tests Test 09/03/17 08:05 09/03/17 08:28 White Blood Count 7.6 TH/MM3 Red Blood Count 4.79 MIL/MM3 Hemoglobin 14.7 GM/DL Hematocrit 44.3 % Mean Corpuscular Volume 92.4 FL Mean Corpuscular Hemoglobin 30.6 PG Mean Corpuscular Hemoglobin Concent 33.1 % Red Cell Distribution Width 12.3 % Platelet Count 322 TH/MM3 Mean Platelet Volume 9.2 FL Neutrophils (%) (Auto) 67.4 % Lymphocytes (%) (Auto) 22.2 % Monocytes (%) (Auto) 5.5 % Eosinophils (%) (Auto) 1.6 % Basophils (%) (Auto) 3.3 % Neutrophils # (Auto) 5.1 TH/MM3 Lymphocytes # (Auto) 1.7 TH/MM3 Monocytes # (Auto) 0.4 TH/MM3 Eosinophils # (Auto) 0.1 TH/MM3 Basophils # (Auto) 0.3 TH/MM3 CBC Comment DIFF FINAL Differential Comment Blood Urea Nitrogen 10 MG/DL Creatinine 0.95 MG/DL Random Glucose 95 MG/DL Total Protein 8.6 GM/DL Albumin 3.5 GM/DL Calcium Level 8.7 MG/DL Alkaline Phosphatase 88 U/L Aspartate Amino Transf (AST/SGOT) 38 U/L Alanine Aminotransferase (ALT/SGPT) 28 U/L Total Bilirubin 0.5 MG/DL Sodium Level 134 MEQ/L Potassium Level 4.5 MEQ/L Chloride Level 103 MEQ/L Carbon Dioxide Level 22.7 MEQ/L Anion Gap 8 MEQ/L Estimat Glomerular Filtration Rate 70 ML/MIN Lipase 620 U/L Urine Color YELLOW Urine Turbidity CL Urine pH GREATER/EQUAL 9.0 Urine Specific [place] 1.014 Urine Protein 30 mg/dL Urine Glucose (UA) NEG mg/dL Urine Ketones NEG mg/dL Urine Occult Blood NEG Urine Nitrite NEG Urine Bilirubin NEG Urine Leukocyte Esterase NEG Urine RBC 0-3 /hpf Urine WBC 0-2 /hpf Urine Squamous Epithelial Cells > 8 /hpf Urine Bacteria NONE /hpf Microscopic Urinalysis Comment CULT NOT INDICATED MDM Medical Decision Making Medical Screen Exam Complete: Yes Emergency Medical Condition: Yes Differential Diagnosis Kidney stone, urinary tract infection, pancreatitis, cholecystitis Narrative Course Patient room to the emergency department, given Toradol and antiemetic. On revisit she is sleeping soundly easily aroused states she still in severe pain. Bedside ultrasound shows no hydronephrosis. Her labs are reassuring other than a elevation of lipase. Patient friend has arrived and inquires about the patient's drinking habits. Patient reluctant to speak on it further. She has no tenderness in the epigastric region and her tenderness is on the left flank. Given her symptoms are still severe and elevated lipase and recommend her for a CAT scan showing no pancreatitis no cholecystitis. Her labs are not suggestive of gallstone pancreatitis. She was given additional pain medicine and antiemetics and is feeling much better. CAT scan does reveal kidney stone which is consistent with her symptoms. Discussed symptomatic management follow- up with urologist and return to do criteria. She is stable for discharge. Expectant management for passage of the kidney stone Last 24 hours Impressions Abdomen/Pelvis CT 09/03/17 0000 Signed Impressions: Service Date/Time: Sunday, September 03, 2017 10:17 - CONCLUSION: 1. Possible 2 mm stone distal third left ureter. Residual 2 mm stone midportion left kidney. 2. 3.2 cm complex mass right adnexa region nonspecific. 3. No free fluid. Bhavesh Narayan MD FACR Diagnosis Primary Impression: Nephrolithiasis Additional Impression: Elevated lipase Referrals: Arden Winn DO Med/Other Pt SpecificInfo: Prescription(s) given Scripts Ondansetron (Zofran) 4 Mg Tab 4 MG PO Q6HR Y for NAUSEA OR VOMITING, #20 TAB 0 Refills Prov: Niels Munoz MD 09/03/17 Hydrocodone-Acetaminophen ([place]) 5 Mg-325 Mg Tab 1 TAB PO Q6H Y for PAIN, #15 TAB 0 Refills Prov: Niels Munoz MD 09/03/17 Tamsulosin (Flomax) 0.4 Mg Cap 0.4 MG PO HS for Manage Prostate Problems, #30 CAP 0 Refills Prov: Niels Munoz MD 09/03/17 Disposition: 01 DISCHARGE HOME Condition: Stable Niels Munoz MD Sep 03, 2017 08:35
[2017-09-03 08:42] LABS: BILIRUBIN, URINE NEG (NEG); BLOOD, URINE NEG (NEG); GLUCOSE,URINE NEG (NEG); KETONE, URINE NEG (NEG); NITRITE,URINE NEG (NEG); PH, URINE GREATER/EQUAL 9.0 (5.0-8.5); URINE LEUKOCYTE ESTERASE NEG (NEG)
[2017-09-03 08:50] LABS: RBC, URINE 0-3 /hpf (0-3); SQUAMOUS EPITHELIAL CELL URINE > 8 /hpf (0-5); URINE COLOR YELLOW (YELLW/STRAW); WBC, URINE 0-2 /hpf (0-5)
[2017-09-03 08:51] LABS: CHLORIDE 103 MEQ/L (98-107); SODIUM (NA) 134 MEQ/L (136-145)
[2017-09-03 08:54] LABS: CALCIUM 8.7 MG/DL (8.5-10.1)
[2017-09-03 08:55] LABS: ALBUMIN 3.5 GM/DL (3.4-5.0); BICARBONATE 22.7 MEQ/L (21.0-32.0); BLOOD UREA NITROGEN 10 MG/DL (7-18); GLUCOSE,RANDOM 95 MG/DL (74-106)
[2017-09-03 08:58] LABS: ALT (GPT) 28 U/L (10-53); AST (GOT) 38 U/L (15-37); CREATININE 0.95 MG/DL (0.50-1.00); GLOMERULAR FILTRATION RATE 70 ML/MIN (>89)
[2017-09-03 08:59] LABS: TOTAL BILIRUBIN ADULT 0.5 MG/DL (0.2-1.0); TOTAL PROTEIN 8.6 GM/DL (6.4-8.2)
[2017-09-03 09:01] LABS: ALKALINE PHOSPHATASE 88 U/L (45-117)
[2017-09-03 09:24] VITALS: BP 95/60; PULSE 75; RESP 18; O2SAT 98
[2017-09-03] MEDS ORDERED: ACETAMINOPHEN/HYDROcodone 325 MG/5 MG TAB PO ONE (10:15)
[2017-09-03] MEDS ORDERED: PROMETHAZINE HCL 25 MG TAB PO ONE (10:15)
[2017-09-03 10:45] VITALS: BP 98/65; PULSE 75; RESP 16; O2SAT 98
--- NOTE | 2017-09-03 10:53 | RADRPT ---
EXAM DATE/TIME: 09/03/2017 10:17 [facility] COMPARISON: CT ABDOMEN & PELVIS W/O CONTRAST, May 14, 2017, 1:18. INDICATIONS : Left flank pain. Nausea and vomiting. ORAL CONTRAST: No oral contrast ingested. RADIATION DOSE: 7.81 CTDIvol (mGy) MEDICAL HISTORY : Renal calculi. SURGICAL HISTORY : Ureteral stents. ENCOUNTER: Initial ACUITY: 1 day PAIN SCALE: 6/10 LOCATION: Left flank TECHNIQUE: Volumetric scanning of the abdomen and pelvis was performed. Using automated exposure control and ad justment of the mA and/or kV according to patient size, radiation dose was kept as low as reasonably achievable to obtain optimal diagnostic quality images. DICOM format image data is available electro nically for review and comparison. FINDINGS: LOWER LUNGS: The visualized lower lungs are clear. LIVER: Homogeneous density without lesion. There is no dilation of the biliary tree. No calcified gallston es. SPLEEN: Normal size without lesion. PANCREAS: Within normal limits. KIDNEYS: Left kidney: 2 mm stone midportion left kidney. Possible 2 mm stone distal third left ureter. Right kidney: No calcifications right kidney. ADRENAL GLANDS: Within normal limits. VASCULAR: There is no aortic aneurysm. BOWEL/MESENTERY: The stomach, small bowel, and colon demonstrate no acute abnormality. There is no free intraperitone al air or fluid. ABDOMINAL WALL: Within normal limits. RETROPERITONEUM: There is no lymphadenopathy. BLADDER: No wall thickening or mass. REPRODUCTIVE: 3.2 cm complex mass right adnexa region.Tampon. INGUINAL: There is no lymphadenopathy or hernia. MUSCULOSKELETAL: Within normal limits for patient age. CONCLUSION: 1. Possible 2 mm stone distal third left ureter. Residual 2 mm stone midportion left kidney. 2. 3.2 cm complex mass right adnexa region nonspecific. 3. No free fluid. Bhavesh Narayan MD FACR on September 03, 2017 at 10:49 Board Certified Radiologist. This report was verified electronically.
[2017-09-03] MEDS ORDERED: NORC5TAB PO (11:22)
[2017-09-03] MEDS ORDERED: ZOFR4TAB PO (11:22)
[2017-09-03] MEDS ORDERED: TAMS5CAP PO (11:22)
[2017-09-03 11:25] VITALS: RESP 16
[2017-09-03 11:40] VITALS: BP 102/65
== END 2017-09-03 11:41 | disposition home or self-care (01) ==
LOC: PHED 07:55
DX: N20.0 Calculus of kidney (principal); R74.8 Abnormal levels of other serum enzymes; F17.210 Nicotine dependence, cigarettes, uncomplicated; Z87.442 Personal history of urinary calculi
CPT/HCPCS: 74176; 80053; 81001; 83690; 84703; 85025; 96361; 96374; 96375; 99285; J1885; J2405; J7030; Q0169

== ENCOUNTER 2017-09-10 10:46 | Emergency (ER) | payer SELFPAY ==
[~2017-09-10] VITALS: Ht 152.4 cm; Wt 63.5 kg
[~2017-09-10 10:46] MED LIST changes: -CLIN300C5 PO; -MAGICPED SWISH-SPIT; +NORC5TAB PO; -PROM25TA10 PO; +TAMS5CAP PO; +ZOFR4TAB PO
[2017-09-10 10:49] VITALS: BP 127/89; TEMP 97.8; O2SAT 100
[2017-09-10] MEDS ORDERED: SODIUM CHLOR 0.9% 1000 ML INJ 1,000 ML IV ONE ×2 (11:07→12:00)
[2017-09-10 11:10] VITALS: BP 127/82; PULSE 91; RESP 18; O2SAT 99
[2017-09-10] MEDS ORDERED: ONDANSETRON HCL 4 MG/2 ML VIAL IVP ONE (11:15)
[2017-09-10] MEDS ORDERED: SODIUM CHLORIDE 0.9% FLUSH 10 ML FLUSH IVF PRN (11:15)
[2017-09-10] MEDS ORDERED: TAMSULOSIN HCL 0.4 MG CAP PO ONE (11:15)
[2017-09-10] MEDS ORDERED: KETOROLAC TROMETHAMINE 30 MG/ML (IVP) VIAL IVP ONE (11:15)
--- NOTE | 2017-09-10 11:15 | PD ---
HPI Chief Complaint: Flank/Kidney Pain Time Seen by Provider: 11:06 Travel History International Travel<30 days: No Contact w/Intl Traveler<30days: No Traveled to known affect area: No History of Present Illness HPI 27-year-old female presents the emergency department with ongoing left flank pain, nausea, and vomiting. Patient was seen on 03 September at [place] emergency department and had a CT scan showing a 2 mm stone in the left distal third of the left ureter. Patient was given a prescription for Zofran, Lortab, and Flomax. Patient states she was unable to get the prescriptions due to lack of funds. States she is doing okay until 1 AM this morning when she woke up with recurrent vomiting and worsening pain in the left flank. Patient has seen urologist in the past at [facility] but not for several years. Denies fever chills or diarrhea. She denies vaginal symptoms. She denies . She is allergic to amoxicillin, ibuprofen upsets her stomach, and penicillin PFSH Past Medical History Hx Anticoagulant Therapy: No Cardiovascular Problems: No Chemotherapy: No Cerebrovascular Accident: No Diabetes: No Diminished Hearing: No Kidney Stones: Yes Respiratory: No Immunizations Current: Yes Tetanus Vaccination: Unknown Influenza Vaccination: No ?: Not : 0 Past Surgical History Genitourinary Surgery: Yes (URETERAL STENT PLACEMENT X 2/REMOVED) Hysterectomy: No Oral Surgery: Yes (WISDOM TEETH) Social History Alcohol Use: Yes ("BOTTLE ON WEEKENDS") Tobacco Use: Yes (1 PPD) Substance Use: Yes (MARIJUANA DAILY) Allergies-Medications (Allergen,Severity, Reaction): Coded Allergies: amoxicillin (Unverified Adverse Reaction, Severe, GETS SEVERE YEAST INFECTION, 09/10/17) THIS IS ALSO TRUE FOR PCN ibuprofen (Verified Adverse Reaction, Severe, 09/10/17) "UNABLE TO TAKE DUE TO KIDNEY PROBLEMS" penicillin G (Unverified Adverse Reaction, Intermediate, SEVERE YEAST INFECTION, 09/10/17) Reported Meds & Prescriptions Reported Meds & Active Scripts Active Mapap Extra Strength (Acetaminophen) 500 Mg Tab 1,000 Mg PO Q4-6H PRN Phenergan (Promethazine HCl) 25 Mg Tablet 25 Mg PO Q6H PRN Review of Systems Except as stated in HPI: all other systems reviewed are Neg General / Constitutional: No: Fever, Chills Eyes: No: Visual changes HENT: No: Headaches Cardiovascular: No: Chest Pain or Discomfort Respiratory: No: Shortness of Breath Gastrointestinal: Positive: Nausea, Vomiting, No: Abdominal Pain Genitourinary: Positive: Flank Pain, No: Urgency, Frequency, Dysuria, Nocturia , Hematuria, Decreased Urinary Output, Oliguria, Hesitancy, Dribbling, Incontinence, Pelvic Pain, Discharge, Vaginal Bleeding Musculoskeletal: No: Pain Skin: No Rash Neurologic: No: Weakness Psychiatric: No: Depression Endocrine: No: Polydipsia Hematologic/Lymphatic: No: Easy Bruising Physical Exam Narrative GENERAL: Patient appears in moderate distress. SKIN: Warm and dry. Normal color. Normal turgor. HEAD: Atraumatic. Normocephalic. EYES: Pupils equal and round. No scleral icterus. No injection or drainage. ENT: No nasal bleeding or discharge. Mucous membranes pink and moist. Pharynx is clear. Airway is patent. NECK: Trachea midline. Supple and nontender. CARDIOVASCULAR: Regular rate and rhythm. No murmurs gallops or rubs. RESPIRATORY: No accessory muscle use. Clear to auscultation. Breath sounds equal bilaterally. GASTROINTESTINAL: Abdomen soft, non-tender, nondistended. Hepatic and splenic margins not palpable. MUSCULOSKELETAL: Extremities without clubbing, cyanosis, or edema. No obvious deformities. NEUROLOGICAL: Awake and alert. No obvious cranial nerve deficits. Motor grossly within normal limits. Five out of 5 muscle strength in the arms and legs. Normal speech. PSYCHIATRIC: Appropriate mood and affect; insight and judgment normal. Data Data Last Documented VS Vital Signs Date Time Temp Pulse Resp B/P (MAP) Pulse Ox O2 Delivery O2 Flow Rate FiO2 09/10/17 13:05 09/10/17 11:10 91 18 99 Room Air 09/10/17 10:49 97.8 Orders Orders Complete Blood Count With Diff (09/10/17 11:07) Comprehensive Metabolic Panel (09/10/17 11:07) Urinalysis - C+S If Indicated (09/10/17 11:07) Iv Access Insert/Monitor (09/10/17 11:07) Sodium Chloride 0.9% Flush (Ns Flush) (09/10/17 11:15) Sodium Chlor 0.9% 1000 Ml Inj (Ns 1000 M (09/10/17 11:07) Ondansetron Inj (Zofran Inj) (09/10/17 11:15) Ed Urine Pregnancytest Poc (09/10/17 11:07) Ketorolac Inj (Toradol Inj) (09/10/17 11:15) Tamsulosin (Flomax) (09/10/17 11:15) Sodium Chlor 0.9% 1000 Ml Inj (Ns 1000 M (09/10/17 12:00) Ed Discharge Order (09/10/17 12:49) Promethazine (Phenergan) (09/10/17 13:30) Ibuprofen (Motrin) (09/10/17 13:30) Labs Laboratory Tests Test 09/10/17 11:15 White Blood Count 11.8 TH/MM3 Red Blood Count 4.44 MIL/MM3 Hemoglobin 14.0 GM/DL Hematocrit 41.6 % Mean Corpuscular Volume 93.8 FL Mean Corpuscular Hemoglobin 31.5 PG Mean Corpuscular Hemoglobin Concent 33.6 % Red Cell Distribution Width 13.4 % Platelet Count 273 TH/MM3 Mean Platelet Volume 9.5 FL Neutrophils (%) (Auto) 76.6 % Lymphocytes (%) (Auto) 15.0 % Monocytes (%) (Auto) 7.6 % Eosinophils (%) (Auto) 0.4 % Basophils (%) (Auto) 0.4 % Neutrophils # (Auto) 9.0 TH/MM3 Lymphocytes # (Auto) 1.8 TH/MM3 Monocytes # (Auto) 0.9 TH/MM3 Eosinophils # (Auto) 0.1 TH/MM3 Basophils # (Auto) 0.0 TH/MM3 CBC Comment DIFF FINAL Differential Comment Urine Color YELLOW Urine Turbidity HAZY Urine pH 8.5 Urine Specific [place] [employer] 1.021 Urine Protein TRACE mg/dL Urine Glucose (UA) NEG mg/dL Urine Ketones NEG mg/dL Urine Occult Blood NEG Urine Nitrite NEG Urine Bilirubin NEG Urine Urobilinogen LESS THAN 2.0 MG/DL Urine Leukocyte Esterase NEG Urine RBC 2 /hpf Urine WBC 1 /hpf Urine Squamous Epithelial Cells 16 /hpf Urine Bacteria FEW /hpf Urine Mucus FEW /lpf Microscopic Urinalysis Comment CULT NOT INDICATED Blood Urea Nitrogen 8 MG/DL Creatinine 0.80 MG/DL Random Glucose 87 MG/DL Total Protein 7.9 GM/DL Albumin 3.5 GM/DL Calcium Level 8.4 MG/DL Alkaline Phosphatase 90 U/L Aspartate Amino Transf (AST/SGOT) 20 U/L Alanine Aminotransferase (ALT/SGPT) 17 U/L Total Bilirubin 0.4 MG/DL Sodium Level 138 MEQ/L Potassium Level 3.7 MEQ/L Chloride Level 106 MEQ/L Carbon Dioxide Level 25.9 MEQ/L Anion Gap 6 MEQ/L Estimat Glomerular Filtration Rate 85 ML/MIN MDM Medical Decision Making Medical Screen Exam Complete: Yes Emergency Medical Condition: Yes Medical Record Reviewed: Yes Differential Diagnosis Hydronephrosis. Renal colic. Renal Lithiasis. Narrative Course Patient is uncomfortable but medically stable at time of exam. Labs ordered including CBC, CMP, and urinalysis. IV access is obtained patient is given 4 mg Zofran IV, 30 mg Toradol IV, and 1000 mL normal saline bolus. Repeat CT scan is not felt warranted based on the patient's previous CT. Labs show mild leukocytosis, with chemistry showing normal BUN/creatinine with a GFR of 85. Urinalysis shows no occult blood. No signs of infection noted. Patient is felt stable for discharge. Mapap 2 tabs every 6 hours when necessary #60. Patient is given a prescription for Phenergan 25 mg every 6 hours when necessary #12. Patient follow-up with a local primary care physician or urologist as needed. Diagnosis Primary Impression: Left flank pain Additional Impression: Nausea & vomiting Qualified Codes: R11.2 - Nausea with vomiting, unspecified Referrals: Urologist Patient Instructions: General Instructions, Kidney Stones (ED) Additional Instructions: V access is obtained patient is given 4 mg Zofran IV, 30 mg Toradol IV, and 1000 mL normal saline bolus. Repeat CT scan is not felt warranted based on the patient's previous CT. Labs show mild leukocytosis, with chemistry showing normal BUN/creatinine with a GFR of 85. Urinalysis shows no occult blood. No signs of infection noted. Patient is felt stable for discharge. Mapap 2 tabs every 6 hours when necessary #60. Patient is given a prescription for Phenergan 25 mg every 6 hours when necessary #12. Patient follow-up with a local primary care physician or urologist as needed. Med/Other Pt SpecificInfo: Prescription(s) given Scripts Acetaminophen (Mapap Extra Strength) 500 Mg Tab 1000 MG PO Q4-6H Y for PAIN, #60 TAB 0 Refills Prov: Cruzito Aguero MD 09/10/17 Promethazine (Phenergan) 25 Mg Tablet 25 MG PO Q6H Y for NAUSEA OR VOMITING, #12 TAB 0 Refills Prov: Cruzito Aguero MD 09/10/17 Disposition: 01 DISCHARGE HOME Condition: Stable Zaheer Brower Sep 10, 2017 11:14
[2017-09-10 12:05] LABS: BASOPHIL % 0.4 % (0.0-2.0); EOSINOPHIL # 0.1 TH/MM3 (0-0.4); EOSINOPHIL % 0.4 % (0.0-4.0); HEMATOCRIT 41.6 % (35.0-46.0); LYMPHOCYTE # 1.8 TH/MM3 (1.0-4.8); MEAN CELL VOLUME 93.8 FL (80.0-100.0); MEAN CORPUSCULAR HEMOGLOBIN 31.5 PG (27.0-34.0); MEAN CORPUSCULAR HGB CONC 33.6 % (32.0-36.0); MEAN PLATELET VOLUME 9.5 FL (7.0-11.0); MONO % 7.6 % (0.0-8.0); MONOCYTE # 0.9 TH/MM3 (0-0.9); NEUT % 76.6 % (16.0-70.0); PLATELET COUNT 273 TH/MM3 (150-450); RED BLOOD COUNT 4.44 MIL/MM3 (4.00-5.30); RED CELL DISTRIBUTION WIDTH 13.4 % (11.6-17.2); WHITE BLOOD COUNT 11.8 TH/MM3 (4.0-11.0)
[2017-09-10 12:10] LABS: BACTERIA, URINE FEW /hpf; BILIRUBIN, URINE NEG (NEG); BLOOD, URINE NEG (NEG); GLUCOSE,URINE NEG (NEG); KETONE, URINE NEG (NEG); MUCUS URINE FEW /lpf (OCC); NITRITE,URINE NEG (NEG); PH, URINE 8.5 (5.0-8.5); SQUAMOUS EPITHELIAL CELL URINE 16 /hpf (0-5); URINE COLOR YELLOW (YELLW/STRAW); URINE LEUKOCYTE ESTERASE NEG (NEG)
[2017-09-10 12:26] LABS: ALBUMIN 3.5 GM/DL (3.4-5.0); ALT (GPT) 17 U/L (10-53); AST (GOT) 20 U/L (15-37); BICARBONATE 25.9 MEQ/L (21.0-32.0); BLOOD UREA NITROGEN 8 MG/DL (7-18); CALCIUM 8.4 MG/DL (8.5-10.1); CHLORIDE 106 MEQ/L (98-107); GLOMERULAR FILTRATION RATE 85 ML/MIN (>89); GLUCOSE,RANDOM 87 MG/DL (74-106); SODIUM (NA) 138 MEQ/L (136-145)
[2017-09-10 12:29] LABS: ALKALINE PHOSPHATASE 90 U/L (45-117); TOTAL BILIRUBIN ADULT 0.4 MG/DL (0.2-1.0); TOTAL PROTEIN 7.9 GM/DL (6.4-8.2)
[2017-09-10] MEDS ORDERED: MAPA500T13 PO (12:45)
[2017-09-10] MEDS ORDERED: PROM25TA10 PO (12:45)
[2017-09-10] MEDS ORDERED: IBUP-232 PO (13:27)
[2017-09-10] MEDS ORDERED: IBUPROFEN 600 MG TAB PO ONE (13:30)
[2017-09-10] MEDS ORDERED: PROMETHAZINE HCL 25 MG TAB PO ONE (13:30)
[2017-09-10 13:39] VITALS: BP 117/73
== END 2017-09-10 13:50 | disposition home or self-care (01) ==
LOC: NEPD 10:46
DX: R10.9 Unspecified abdominal pain (principal); R11.2 Nausea with vomiting, unspecified; D72.829 Elevated white blood cell count, unspecified; F17.200 Nicotine dependence, unspecified, uncomplicated; Z87.442 Personal history of urinary calculi
CPT/HCPCS: 80053; 81001; 84703; 85025; 96361; 96374; 96375; 99284; J1885; J2405; J7030; Q0169

== ENCOUNTER 2017-09-26 04:54 | Inpatient (IN) | payer SELFPAY ==
[~2017-09-26] VITALS: Ht 152.4 cm; Wt 62.0 kg
[~2017-09-26 04:54] MED LIST changes: +IBUP-232 PO; +MAPA500T13 PO; -NORC5TAB PO; +PROM25TA10 PO; -TAMS5CAP PO; -ZOFR4TAB PO
[2017-09-26 04:58] VITALS: PULSE 101; RESP 16; TEMP 98.8; O2SAT 98
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
[2017-09-26] MEDS ORDERED: MORPHINE SULFATE 2 MG/ML INJ IV PUSH ONE (05:30)
[2017-09-26] MEDS ORDERED: ONDANSETRON HCL 4 MG/2 ML VIAL IV PUSH ONE (05:30)
[2017-09-26] MEDS ORDERED: METOCLOPRAMIDE HCL 10 MG/2 ML VIAL IV PUSH ONE (06:15)
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
[2017-09-26] MEDS ORDERED: SODIUM CHLOR 0.9% 1000 ML INJ 1,000 ML IV ONE (06:30)
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
[2017-09-26] MEDS ORDERED: SODIUM CHLOR 0.9% 1000 ML INJ 1,000 ML IV SCH (06:41)
[2017-09-26] MEDS ORDERED: ACETAMINOPHEN 325 MG TAB PO PRN (06:45)
[2017-09-26] MEDS ORDERED: MORPHINE SULFATE 2 MG/ML INJ IV PUSH PRN (06:45)
[2017-09-26] MEDS ORDERED: ONDANSETRON HCL 4 MG/2 ML VIAL IVP PRN (06:45)
[2017-09-26] MEDS ORDERED: ACETAMINOPHEN/HYDROcodone 325 MG/5 MG TAB PO PRN (06:45)
[2017-09-26] MEDS ORDERED: SENNOSIDES 8.6 MG TAB PO PRN (06:45)
[2017-09-26] MEDS ORDERED: MAGNESIUM HYDROXIDE SUSP 30 ML CUP PO PRN (06:45)
[2017-09-26] MEDS ORDERED: BISACODYL 10 MG SUPP RECTAL PRN (06:45)
[2017-09-26] MEDS ORDERED: SODIUM CHLORIDE 0.9% FLUSH 10 ML FLUSH IV FLUSH PRN ×2 (06:45)
[2017-09-26] MEDS ORDERED: LACTULOSE SYRUP 20 GM/30 ML CUP PO PRN (06:45)
[2017-09-26 06:50] LABS: AUTOMATED NEUTROPHIL # 5.5 TH/MM3 (1.8-7.7); BASOPHIL % 0.6 % (0.0-2.0); EOSINOPHIL % 0.5 % (0.0-4.0); HEMATOCRIT 41.9 % (35.0-46.0); HEMOGLOBIN 13.9 GM/DL (11.6-15.3); LYMPH % 24.2 % (9.0-44.0); LYMPHOCYTE # 1.9 TH/MM3 (1.0-4.8); MEAN CELL VOLUME 94.8 FL (80.0-100.0); MEAN CORPUSCULAR HEMOGLOBIN 31.5 PG (27.0-34.0); MEAN CORPUSCULAR HGB CONC 33.2 % (32.0-36.0); MEAN PLATELET VOLUME 9.6 FL (7.0-11.0); MONOCYTE # 0.5 TH/MM3 (0-0.9); NEUT % 68.7 % (16.0-70.0); PLATELET COUNT 269 TH/MM3 (150-450); RED BLOOD COUNT 4.42 MIL/MM3 (4.00-5.30); RED CELL DISTRIBUTION WIDTH 13.4 % (11.6-17.2)
[2017-09-26 07:09] LABS: INTERNATIONAL NORMALIZED RATIO 1.1 RATIO; PROTHROMBIN TIME - PATIENT 10.7 SEC (9.8-11.6)
[2017-09-26 07:11] LABS: ALBUMIN 3.6 GM/DL (3.4-5.0); ALT (GPT) 18 U/L (10-53); AST (GOT) 20 U/L (15-37); BICARBONATE 22.9 MEQ/L (21.0-32.0); BLOOD UREA NITROGEN 4 MG/DL (7-18); CALCIUM 8.7 MG/DL (8.5-10.1); CHLORIDE 110 MEQ/L (98-107); GLOMERULAR FILTRATION RATE 74 ML/MIN (>89); GLUCOSE,RANDOM 118 MG/DL (74-106); SODIUM (NA) 142 MEQ/L (136-145)
[2017-09-26 07:13] LABS: ALKALINE PHOSPHATASE 75 U/L (45-117); TOTAL BILIRUBIN ADULT 0.4 MG/DL (0.2-1.0); TOTAL PROTEIN 7.6 GM/DL (6.4-8.2)
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
[2017-09-26] MEDS ORDERED: DOCUSATE SODIUM 50 MG/SENNA 8.6 MG TAB PO SCH (09:00)
[2017-09-26] MEDS ORDERED: SODIUM CHLORIDE 0.9% FLUSH 10 ML FLUSH IV FLUSH SCH (09:00)
[2017-09-26 09:41] VITALS: BP 105/65; PULSE 79; RESP 18; TEMP 97.7; O2SAT 99
[2017-09-26] MEDS ORDERED: LIDOCAINE HCL 2% 20 ML VIAL ONE (09:50)
--- NOTE | 2017-09-26 10:56 | RADRPT ---
EXAM DATE/TIME: 09/26/2017 10:44 [facility] COMPARISON: HAND RIGHT COMPLETE ([id number]), September 26, 2017, 5:52. INDICATIONS : Post reduction right hand MEDICAL HISTORY : Renal calculi. SURGICAL HISTORY : Renal stents ENCOUNTER: Subsequent ACUITY: 1 day PAIN SCORE: 0/10 LOCATION: Right Hand FINDINGS: Minimal angulation remaining in fiberglass. No other fractures are appreciated. CONCLUSION: Minimal spiculation remains in fiberglass Bhavesh Narayan MD FACR on September 26, 2017 at 10:54 Board Certified Radiologist. This report was verified electronically.
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
== END 2017-09-26 13:30 | disposition left against medical advice (07) | DRG 563 ==
LOC: NEPC 04:54 → NEDA 06:44
PROVIDERS: ADMIT Family Medicine; ATTEND Family Medicine
PROC: 0PSPXZZ Reposition Right Metacarpal, External Approach (ICD-10-PCS; principal; 2017-09-26)
DX: S62.336A Displaced fracture of neck of fifth metacarpal bone, right hand, initial encounter for closed fracture (principal); S09.90XA Unspecified injury of head, initial encounter; F10.129 Alcohol abuse with intoxication, unspecified; Y90.6 Blood alcohol level of 120-199 mg/100 ml; F17.210 Nicotine dependence, cigarettes, uncomplicated; F12.90 Cannabis use, unspecified, uncomplicated; Y04.0XXA Assault by unarmed brawl or fight, initial encounter; Y92.89 Other specified places as the place of occurrence of the external cause; Z87.442 Personal history of urinary calculi
CPT/HCPCS: 70450; 73090; 73130; 80053; 80307; 85025; 85610; 85730; 96374; 96375; J2270; J2405; J2765; J7030

== ENCOUNTER 2017-10-29 01:04 | Emergency (ER) | payer SELFPAY ==
[~2017-10-29] VITALS: Ht 157.5 cm; Wt 62.0 kg
[2017-10-29 01:10] VITALS: BP 111/70; PULSE 102; RESP 20; TEMP 98.2; O2SAT 98
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
[2017-10-29] MEDS ORDERED: IBUP-232 PO (03:24)
[2017-10-29] MEDS ORDERED: IBUPROFEN 800 MG TAB PO ONE (04:30)
== END 2017-10-29 04:59 | disposition home or self-care (01) ==
LOC: NEPD 01:04
DX: S62.91XD Unspecified fracture of right hand, subsequent encounter for fracture with routine healing (principal); F17.200 Nicotine dependence, unspecified, uncomplicated; W51.XXXD Accidental striking against or bumped into by another person, subsequent encounter; Z87.442 Personal history of urinary calculi; Z88.0 Allergy status to penicillin
CPT/HCPCS: 29125; 73130